=== PATIENT | male | born 1965 | race African-American/Black ===

== ENCOUNTER 2017-02-17 19:17 | Inpatient (IN) ==
[2017-02-17] MEDS ORDERED: SODIUM CHLORIDE 0.9% 2,200 ML IV ONE (20:53)
[2017-02-17 21:36] LABS: Basophils # 0.1 10*3/uL (0.0-0.2); Basophils % 0.3 % (0.0-0.8); Eosinophils # 0.1 10*3/uL (0.0-0.87); Eosinophils % 0.4 % (0.00-10.9); Hematocrit 38.6 VOL% (42.0-52.0); Hemoglobin 12.7 GM/DL (14.0-18.0); Immature Granulocytes % 1.8 %; Immature Granulocytes Absolute 0.47 #; Lymphocytes # 2.1 10*3/uL (1.4-4.0); Lymphocytes % 7.8 % (21.2-54.2); Mean Corpuscular HGB Conc 32.9 GM/DL (32-36); Mean Corpuscular Hemoglobin 31 PG (27-34); Mean Corpuscular Volume 93.2 FL (87-102); Mean Platelet Volume 8.8 FL (9.6-12.0); Monocytes # 2.5 10*3/uL (0.11-0.8); Monocytes % 9.2 % (1.7-12.7); Neutrophils # 21.6 10*3/uL (1.4-7.4); Neutrophils % 80.5 % (38.7-73.9); Platelet Count 185 T/CUMM (130-400); Red Blood Count 4.14 MC/CUMM (3.8-5.5); Red Cell Distribution Width 12.9 % (9.3-17.3); White Blood Count 26.8 T/CUMM (4-12)
[2017-02-17 21:44] LABS: Apearance,Urine CLOUDY (Clear); Bilirubin,Urine Negative (Negative); Blood, Urine Large mg/dL (Negative); Glucose,Urine (UA) Negative (Negative); Ketones,Urine Negative (Negative); Nitrite,Urine Negative (Negative); Protein,Urine 100 MG/DL; RBC,Urine 10 /HPF (0-4); Squamous Epithelial Cell,Urine Occasional /HPF (0-10); Urine Color Yellow (Yellow); Urine Specific Gravity 1.003 (1.001-1.035); Urine Urobilinogen < 2.0 EU/DL (0.2-1.0); WBC,Urine 244 /HPF (0-6)
[2017-02-17] MEDS ORDERED: CEFEPIME 2,000 MG in SODIUM CHLORIDE 0.9% 100 ML IV STA (21:46)
[2017-02-17] MEDS ORDERED: VANCOMYCIN INJ 1,000 MG in SODIUM CHLORIDE 0.9% 250 ML IV STA (21:47)
[2017-02-17] MEDS ORDERED: VANCOMYCIN 1,000 MG VIAL ONE (21:50)
[2017-02-17 21:55] LABS: Band Neutrophils 1 % (0-10); Lymphocytes 10 % (20-55); Segmented Neutrophils 80 % (50-85); Total Cells Counted 100
[2017-02-17 21:56] LABS: Burr Cells Few; Hypochromasia Slight; Platelet Estimate Adequate
[2017-02-17 23:03] LABS: Albumin 2.9 G/DL (3.4-5.0); Bilirubin,Total 0.5 MG/DL (0.2-1.0); Calcium 8.7 MG/DL (8.5-10.1); Osmolality,Calculated 268.8 MOS/KG (273-304); Total Protein 6.6 G/DL (6.4-8.3)
[2017-02-17] MEDS ORDERED: ONDANSETRON 4 MG/2 ML VIAL IV PRN (23:04)
[2017-02-17] MEDS ORDERED: SODIUM CHLORIDE 0.9% 1,000 ML IV SCH (23:30)
[2017-02-18] MEDS: DEXTROSE 5% NACL 0.45% 1,000 ML IV SCH ×2 (01:14→10:28)
[2017-02-18] MEDS: PIPERACILLIN/TAZOBACTAM 3,375 MG in SODIUM CHLORIDE 0.9% 100 ML IV SCH ×3 (01:28→15:27)
[2017-02-18] MEDS: BENZTROPINE 1 MG TABLET PO SCH ×4 (01:31→20:48)
[2017-02-18] MEDS: FAMOTIDINE 20 MG TABLET PO SCH ×3 (01:32→20:49)
[2017-02-18] MEDS: DIVALPROEX 500 MG TABLET PO SCH ×3 (01:32→20:48)
[2017-02-18] MEDS: DOCUSATE SODIUM 100 MG CAPSULE PO SCH ×3 (01:33→20:49)
[2017-02-18 05:44] LABS: Basophils % 0.2 % (0.0-0.8); Eosinophils # 0.1 10*3/uL (0.0-0.87); Eosinophils % 0.7 % (0.00-10.9); Hematocrit 33.9 VOL% (42.0-52.0); Immature Granulocytes % 1.6 %; Immature Granulocytes Absolute 0.32 #; Lymphocytes # 1.8 10*3/uL (1.4-4.0); Lymphocytes % 9.2 % (21.2-54.2); Mean Corpuscular HGB Conc 32.4 GM/DL (32-36); Mean Corpuscular Hemoglobin 30 PG (27-34); Mean Corpuscular Volume 93.4 FL (87-102); Mean Platelet Volume 8.9 FL (9.6-12.0); Monocytes # 1.5 10*3/uL (0.11-0.8); Monocytes % 7.4 % (1.7-12.7); Neutrophils # 15.8 10*3/uL (1.4-7.4); Neutrophils % 80.9 % (38.7-73.9); Platelet Count 172 T/CUMM (130-400); Red Blood Count 3.63 MC/CUMM (3.8-5.5); Red Cell Distribution Width 13.2 % (9.3-17.3); White Blood Count 19.5 T/CUMM (4-12)
[2017-02-18 06:19] LABS: Albumin 2.4 G/DL (3.4-5.0); Bilirubin,Total 0.5 MG/DL (0.2-1.0); Calcium 8.2 MG/DL (8.5-10.1); Osmolality,Calculated 278.1 MOS/KG (273-304); Potassium 3.9 MMOL/L (3.5-5.1); Total Protein 5.6 G/DL (6.4-8.3)
[2017-02-18] MEDS: FERROUS SULFATE 325 MG TABLET PO SCH (08:16)
[2017-02-18] MEDS: hydroCHLOROthiazide 25 MG TABLET PO SCH (08:16)
[2017-02-18] MEDS: LUBIPROSTONE 24 MCG CAPSULE PO SCH ×2 (08:16→20:49)
[2017-02-18] MEDS: NICOTINE 21 MG/24 HR PATCH TRANSDERM SCH (08:17)
[2017-02-18] MEDS: PANTOPRAZOLE 40 MG TABLET PO SCH ×2 (08:17→20:48)
[2017-02-18] MEDS: LITHIUM 300 MG CAPSULE PO SCH ×3 (08:17→20:49)
[2017-02-18] MEDS: METOPROLOL SUCCINATE XL 50 MG TABLET PO SCH (08:17)
[2017-02-18] MEDS ORDERED: HALOPERIDOL 5 MG/ML AMP IV PRN (16:56)
[2017-02-18] MEDS: LURASIDONE 40 MG TABLET PO SCH (17:08)
[2017-02-18] MEDS: TAMSULOSIN 0.4 MG CAPSULE PO SCH (20:49)
[2017-02-19] MEDS: PIPERACILLIN/TAZOBACTAM 3,375 MG in SODIUM CHLORIDE 0.9% 100 ML IV SCH ×4 (00:31→23:40)
[2017-02-19] MEDS: DEXTROSE 5% NACL 0.45% 1,000 ML IV SCH ×3 (06:16→16:27)
[2017-02-19 06:18] LABS: White Blood Count 15.5 T/CUMM (4-12)
[2017-02-19 06:19] LABS: Basophils # 0.1 10*3/uL (0.0-0.2); Basophils % 0.3 % (0.0-0.8); Eosinophils # 0.2 10*3/uL (0.0-0.87); Eosinophils % 1.4 % (0.00-10.9); Hemoglobin 11.4 GM/DL (14.0-18.0); Immature Granulocytes % 1.7 %; Immature Granulocytes Absolute 0.26 #; Lymphocytes # 2.3 10*3/uL (1.4-4.0); Lymphocytes % 14.7 % (21.2-54.2); Mean Corpuscular HGB Conc 32.6 GM/DL (32-36); Mean Corpuscular Hemoglobin 30 PG (27-34); Mean Corpuscular Volume 93.1 FL (87-102); Monocytes # 0.9 10*3/uL (0.11-0.8); Monocytes % 6.1 % (1.7-12.7); Neutrophils # 11.7 10*3/uL (1.4-7.4); Neutrophils % 75.8 % (38.7-73.9); Platelet Count 162 T/CUMM (130-400); Red Blood Count 3.76 MC/CUMM (3.8-5.5); Red Cell Distribution Width 13.4 % (9.3-17.3)
[2017-02-19 07:02] LABS: Calcium 8.7 MG/DL (8.5-10.1); Magnesium 2.7 MG/DL (1.8-2.4); Osmolality,Calculated 281.8 MOS/KG (273-304); Potassium 3.7 MMOL/L (3.5-5.1)
[2017-02-19] MEDS: hydroCHLOROthiazide 25 MG TABLET PO SCH (08:27)
[2017-02-19] MEDS: NICOTINE 21 MG/24 HR PATCH TRANSDERM SCH (08:27)
[2017-02-19] MEDS: FAMOTIDINE 20 MG TABLET PO SCH ×2 (08:28→21:13)
[2017-02-19] MEDS: BENZTROPINE 1 MG TABLET PO SCH ×2 (08:28→21:13)
[2017-02-19] MEDS: FERROUS SULFATE 325 MG TABLET PO SCH (08:28)
[2017-02-19] MEDS: DIVALPROEX 500 MG TABLET PO SCH ×2 (08:28→21:13)
[2017-02-19] MEDS: METOPROLOL SUCCINATE XL 50 MG TABLET PO SCH (08:28)
[2017-02-19] MEDS: PANTOPRAZOLE 40 MG TABLET PO SCH ×2 (08:28→21:13)
[2017-02-19] MEDS: DOCUSATE SODIUM 100 MG CAPSULE PO SCH ×2 (08:28→21:13)
[2017-02-19] MEDS: LUBIPROSTONE 24 MCG CAPSULE PO SCH ×2 (08:28→21:13)
[2017-02-19] MEDS: LITHIUM 300 MG CAPSULE PO SCH ×3 (08:28→21:13)
[2017-02-19] MEDS: LURASIDONE 40 MG TABLET PO SCH (17:00)
[2017-02-19] MEDS: TAMSULOSIN 0.4 MG CAPSULE PO SCH (21:13)
[2017-02-20] MEDS: DEXTROSE 5% NACL 0.45% 1,000 ML IV SCH ×2 (04:48→13:37)
[2017-02-20 07:05] LABS: Basophils # 0.1 10*3/uL (0.0-0.2); Basophils % 0.4 % (0.0-0.8); Eosinophils # 0.3 10*3/uL (0.0-0.87); Eosinophils % 2.3 % (0.00-10.9); Hematocrit 39.1 VOL% (42.0-52.0); Hemoglobin 12.3 GM/DL (14.0-18.0); Immature Granulocytes % 1.6 %; Immature Granulocytes Absolute 0.19 #; Lymphocytes # 2.3 10*3/uL (1.4-4.0); Lymphocytes % 19.2 % (21.2-54.2); Mean Corpuscular HGB Conc 31.5 GM/DL (32-36); Mean Corpuscular Hemoglobin 30 PG (27-34); Mean Corpuscular Volume 93.8 FL (87-102); Mean Platelet Volume 9.3 FL (9.6-12.0); Monocytes # 1.2 10*3/uL (0.11-0.8); Monocytes % 9.9 % (1.7-12.7); NRBC # 0.02 10*3/uL; Neutrophils # 8.1 10*3/uL (1.4-7.4); Neutrophils % 66.6 % (38.7-73.9); Platelet Count 141 T/CUMM (130-400); Red Blood Count 4.17 MC/CUMM (3.8-5.5); Red Cell Distribution Width 13.1 % (9.3-17.3); White Blood Count 12.1 T/CUMM (4-12)
[2017-02-20] MEDS: FAMOTIDINE 20 MG TABLET PO SCH (09:27)
[2017-02-20] MEDS: hydroCHLOROthiazide 25 MG TABLET PO SCH (09:27)
[2017-02-20] MEDS: LUBIPROSTONE 24 MCG CAPSULE PO SCH (09:27)
[2017-02-20] MEDS: DOCUSATE SODIUM 100 MG CAPSULE PO SCH (09:28)
[2017-02-20] MEDS: FERROUS SULFATE 325 MG TABLET PO SCH (09:28)
[2017-02-20] MEDS: PANTOPRAZOLE 40 MG TABLET PO SCH (09:28)
[2017-02-20] MEDS: LITHIUM 300 MG CAPSULE PO SCH (09:28)
[2017-02-20] MEDS: BENZTROPINE 1 MG TABLET PO SCH (09:28)
[2017-02-20] MEDS: PIPERACILLIN/TAZOBACTAM 3,375 MG in SODIUM CHLORIDE 0.9% 100 ML IV SCH (09:29)
[2017-02-20] MEDS: DIVALPROEX 500 MG TABLET PO SCH (09:29)
[2017-02-20] MEDS: NICOTINE 21 MG/24 HR PATCH TRANSDERM SCH (09:30)
[2017-02-20] MEDS: METOPROLOL SUCCINATE XL 50 MG TABLET PO SCH (09:32)
[2017-02-20 12:35] VITALS: BP 122/89
== END 2017-02-20 15:18 | disposition home or self-care (01) | DRG 720 ==
LOC: N.ED 19:17 → N.EDINP 23:04 → N.5E 23:34
PROVIDERS: ADMIT Internal Medicine; ATTEND Internal Medicine

== ENCOUNTER 2017-06-14 08:46 | Inpatient (IN) ==
[2017-06-14 09:56] LABS: Basophils % 0.1 % (0.0-0.8); Eosinophils % 0.3 % (0.00-10.9); Hematocrit 34.6 VOL% (42.0-52.0); Hemoglobin 11.4 GM/DL (14.0-18.0); Immature Granulocytes % 0.4 %; Immature Granulocytes Absolute 0.03 #; Lymphocytes # 0.9 10*3/uL (1.4-4.0); Lymphocytes % 10.8 % (21.2-54.2); Mean Corpuscular HGB Conc 32.9 GM/DL (32-36); Mean Corpuscular Hemoglobin 28 PG (27-34); Mean Platelet Volume 9.7 FL (9.6-12.0); Monocytes # 1.7 10*3/uL (0.11-0.8); Neutrophils # 5.3 10*3/uL (1.4-7.4); Neutrophils % 67.4 % (38.7-73.9); Red Blood Count 4.07 MC/CUMM (3.8-5.5); Red Cell Distribution Width 18.8 % (9.3-17.3); White Blood Count 7.9 T/CUMM (4-12)
[2017-06-14 09:57] LABS: Platelet Count 75 T/CUMM (130-400)
[2017-06-14 10:11] LABS: Albumin 3.3 G/DL (3.4-5.0); Bilirubin,Total 0.4 MG/DL (0.2-1.0); Calcium 9.8 MG/DL (8.5-10.1); Osmolality,Calculated 279.4 MOS/KG (273-304); Total Protein 6.9 G/DL (6.4-8.3)
[2017-06-14 10:13] LABS: Lactic Acid 1.1 MMOL/L (0.4-2.0)
[2017-06-14 10:55] LABS: Band Neutrophils 5 % (0-10); Hypochromasia 1+; Lymphocytes 18 % (20-55); Metamyelocytes 1 %; Microcytosis 1+; Nucleated Red Blood Cells 1 (0-5); Ovalocytes Slight; Segmented Neutrophils 65 % (50-85); Total Cells Counted 100
[2017-06-14 10:56] LABS: Acanthocytes Few; Platelet Estimate Decreased; Tear Drop Cells Slight
[2017-06-14] MEDS ORDERED: MORPHINE 2 MG/1 ML SYRINGE IV PRN (12:14)
[2017-06-14] MEDS ORDERED: ONDANSETRON 4 MG/2 ML VIAL IV PRN (14:32)
[2017-06-14] MEDS ORDERED: DOCUSATE SODIUM 100 MG CAPSULE PO PRN (14:32)
[2017-06-14] MEDS ORDERED: LACTULOSE 20 GM/30 ML UDCUP PO PRN (14:32)
[2017-06-14 21:56] LABS: Apearance,Urine CLEAR (Clear); Bacteria,Urine Occasional /HPF (Few); Bilirubin,Urine Negative (Negative); Blood, Urine Large mg/dL (Negative); Glucose,Urine (UA) Negative (Negative); Hyaline Casts,Urine 9 /LPF (0-3); Ketones,Urine Negative (Negative); Mucus,Urine Occasional /LPF (Occasional); Nitrite,Urine Negative (Negative); Protein,Urine 100 MG/DL; RBC,Urine 292 /HPF (0-4); Urine Color Yellow (Yellow); Urine Specific Gravity 1.006 (1.001-1.035); Urine Urobilinogen < 2.0 EU/DL (0.2-1.0); WBC,Urine 3 /HPF (0-6)
[2017-06-15 04:08] LABS: Basophils % 0.4 % (0.0-0.8); Hematocrit 32.1 VOL% (42.0-52.0); Hemoglobin 10.6 GM/DL (14.0-18.0); Immature Granulocytes % 0.8 %; Immature Granulocytes Absolute 0.04 #; Lymphocytes # 0.5 10*3/uL (1.4-4.0); Lymphocytes % 11.4 % (21.2-54.2); Mean Corpuscular Hemoglobin 28 PG (27-34); Mean Corpuscular Volume 84.5 FL (87-102); Mean Platelet Volume 10.6 FL (9.6-12.0); Monocytes # 0.5 10*3/uL (0.11-0.8); Monocytes % 10.1 % (1.7-12.7); Neutrophils # 3.7 10*3/uL (1.4-7.4); Neutrophils % 77.3 % (38.7-73.9); Platelet Count 53 T/CUMM (130-400); Red Cell Distribution Width 18.8 % (9.3-17.3); White Blood Count 4.7 T/CUMM (4-12)
[2017-06-15 04:31] LABS: Calcium 8.8 MG/DL (8.5-10.1); Osmolality,Calculated 280.3 MOS/KG (273-304); Potassium 3.8 MMOL/L (3.5-5.1)
[2017-06-15 05:28] LABS: Band Neutrophils 25 % (0-10); Eosinophils 1 % (0-10); Giant Platelets Few; Hypochromasia 1+; Lymphocytes 11 % (20-55); Myelocytes 4 %; Ovalocytes Slight; Platelet Estimate Decreased; Segmented Neutrophils 52 % (50-85); Total Cells Counted 100
[2017-06-15 05:29] LABS: Microcytosis Slight
[2017-06-15] MEDS: PANTOPRAZOLE 40 MG TABLET PO SCH (08:57)
[2017-06-16 04:19] LABS: Basophils # 0.1 10*3/uL (0.0-0.2); Basophils % 0.6 % (0.0-0.8); Eosinophils # 0.1 10*3/uL (0.0-0.87); Eosinophils % 0.6 % (0.00-10.9); Hematocrit 31.2 VOL% (42.0-52.0); Hemoglobin 10.4 GM/DL (14.0-18.0); Immature Granulocytes % 7.6 %; Immature Granulocytes Absolute 1.07 #; Lymphocytes # 0.8 10*3/uL (1.4-4.0); Lymphocytes % 5.8 % (21.2-54.2); Mean Corpuscular HGB Conc 33.3 GM/DL (32-36); Mean Corpuscular Hemoglobin 29 PG (27-34); Mean Corpuscular Volume 85.5 FL (87-102); Mean Platelet Volume 11.2 FL (9.6-12.0); Monocytes # 0.8 10*3/uL (0.11-0.8); Neutrophils # 11.2 10*3/uL (1.4-7.4); Neutrophils % 79.4 % (38.7-73.9); Platelet Count 53 T/CUMM (130-400); Red Blood Count 3.65 MC/CUMM (3.8-5.5); Red Cell Distribution Width 19.1 % (9.3-17.3); White Blood Count 14.1 T/CUMM (4-12)
[2017-06-16 04:47] LABS: Calcium 9.2 MG/DL (8.5-10.1); Osmolality,Calculated 290.7 MOS/KG (273-304); Potassium 3.4 MMOL/L (3.5-5.1)
[2017-06-16 05:25] LABS: Band Neutrophils 32 % (0-10); Burr Cells 1+; Eosinophils 1 % (0-10); Lymphocytes 28 % (20-55); Metamyelocytes 3 %; Myelocytes 4 %; Platelet Estimate Decreased; Poikilocytosis Few; Segmented Neutrophils 29 % (50-85); Total Cells Counted 100
[2017-06-16] MEDS: amLODIPine 5 MG TABLET PO SCH (08:32)
[2017-06-16] MEDS ORDERED: METOPROLOL SUCCINATE XL 50 MG TABLET PO SCH (09:00)
[2017-06-16] MEDS: CLOTRIMAZOLE 1% CREAM 15 GM TUBE TOP SCH ×2 (10:56→21:06)
[2017-06-16] MEDS: BENZTROPINE 1 MG TABLET PO SCH ×3 (10:57→21:06)
[2017-06-16] MEDS: CLINDAMYCIN 300 MG CAPSULE PO SCH ×4 (10:57→21:05)
[2017-06-16] MEDS: DIVALPROEX 500 MG TABLET PO SCH ×2 (10:57→21:06)
[2017-06-16] MEDS: PANTOPRAZOLE 40 MG TABLET PO SCH ×2 (10:57→11:17)
[2017-06-16] MEDS: TERBINAFINE 250 MG TABLET PO SCH ×2 (10:57→11:16)
[2017-06-16] MEDS: HALOPERIDOL 5 MG TABLET PO SCH ×3 (10:57→21:06)
[2017-06-16] MEDS: LITHIUM 300 MG CAPSULE PO SCH ×3 (10:58→21:06)
[2017-06-17] MEDS: amLODIPine 5 MG TABLET PO SCH (08:55)
[2017-06-17] MEDS: BENZTROPINE 1 MG TABLET PO SCH ×2 (10:08→21:14)
[2017-06-17] MEDS: DIVALPROEX 500 MG TABLET PO SCH ×2 (10:08→21:14)
[2017-06-17] MEDS: CLINDAMYCIN 300 MG CAPSULE PO SCH ×3 (10:08→21:15)
[2017-06-17] MEDS: HALOPERIDOL 5 MG TABLET PO SCH ×2 (10:08→21:14)
[2017-06-17] MEDS: CLOTRIMAZOLE 1% CREAM 15 GM TUBE TOP SCH ×2 (10:08→21:16)
[2017-06-17] MEDS: PANTOPRAZOLE 40 MG TABLET PO SCH (10:09)
[2017-06-17] MEDS: LITHIUM 300 MG CAPSULE PO SCH ×3 (10:09→21:15)
[2017-06-17] MEDS: TERBINAFINE 250 MG TABLET PO SCH (10:09)
[2017-06-17] MEDS ORDERED: TUBERCULIN SKIN TEST 0.1 ML SYRINGE INTRADERM ONE (12:00)
[2017-06-18] MEDS: CLOTRIMAZOLE 1% CREAM 15 GM TUBE TOP SCH ×2 (09:00→23:55)
[2017-06-18] MEDS: CLINDAMYCIN 300 MG CAPSULE PO SCH ×3 (10:14→23:53)
[2017-06-18] MEDS: DIVALPROEX 500 MG TABLET PO SCH ×2 (10:15→23:54)
[2017-06-18] MEDS: BENZTROPINE 1 MG TABLET PO SCH ×2 (10:15→23:53)
[2017-06-18] MEDS: LITHIUM 300 MG CAPSULE PO SCH ×3 (10:15→23:54)
[2017-06-18] MEDS: HALOPERIDOL 5 MG TABLET PO SCH ×2 (10:15→23:54)
[2017-06-18] MEDS: PANTOPRAZOLE 40 MG TABLET PO SCH (10:16)
[2017-06-18] MEDS: amLODIPine 5 MG TABLET PO SCH (10:17)
[2017-06-18] MEDS: TERBINAFINE 250 MG TABLET PO SCH (10:21)
[2017-06-19] MEDS: LITHIUM 300 MG CAPSULE PO SCH ×3 (10:29→21:52)
[2017-06-19] MEDS: TERBINAFINE 250 MG TABLET PO SCH (10:29)
[2017-06-19] MEDS: HALOPERIDOL 5 MG TABLET PO SCH ×2 (10:29→21:52)
[2017-06-19] MEDS: PANTOPRAZOLE 40 MG TABLET PO SCH (10:29)
[2017-06-19] MEDS: DIVALPROEX 500 MG TABLET PO SCH ×2 (10:30→21:52)
[2017-06-19] MEDS: BENZTROPINE 1 MG TABLET PO SCH ×2 (10:30→21:52)
[2017-06-19] MEDS: amLODIPine 5 MG TABLET PO SCH (10:30)
[2017-06-19] MEDS: CLINDAMYCIN 300 MG CAPSULE PO SCH ×3 (10:30→21:51)
[2017-06-19] MEDS: CLOTRIMAZOLE 1% CREAM 15 GM TUBE TOP SCH ×2 (17:53→23:35)
[2017-06-20] MEDS: DIVALPROEX 500 MG TABLET PO SCH (09:24)
[2017-06-20] MEDS: CLINDAMYCIN 300 MG CAPSULE PO SCH ×2 (09:24→19:00)
[2017-06-20] MEDS: TERBINAFINE 250 MG TABLET PO SCH (09:24)
[2017-06-20] MEDS: HALOPERIDOL 5 MG TABLET PO SCH ×2 (09:25→21:23)
[2017-06-20] MEDS: PANTOPRAZOLE 40 MG TABLET PO SCH (09:25)
[2017-06-20] MEDS: amLODIPine 5 MG TABLET PO SCH (09:25)
[2017-06-20] MEDS: BENZTROPINE 1 MG TABLET PO SCH ×2 (09:25→21:23)
[2017-06-20] MEDS: LITHIUM 300 MG CAPSULE PO SCH ×3 (09:25→21:22)
[2017-06-20 18:13] LABS: Basophils % 0.5 % (0.0-0.8); Eosinophils # 0.1 10*3/uL (0.0-0.87); Eosinophils % 0.7 % (0.00-10.9); Hematocrit 45.2 VOL% (42.0-52.0); Hemoglobin 14.3 GM/DL (14.0-18.0); Immature Granulocytes % 0.6 %; Immature Granulocytes Absolute 0.05 #; Mean Corpuscular HGB Conc 31.6 GM/DL (32-36); Mean Corpuscular Hemoglobin 28 PG (27-34); Mean Corpuscular Volume 87.8 FL (87-102); Monocytes # 0.9 10*3/uL (0.11-0.8); Monocytes % 10.7 % (1.7-12.7); NRBC # 0.04 10*3/uL; Neutrophils # 5.1 10*3/uL (1.4-7.4); Neutrophils % 63.5 % (38.7-73.9); Red Blood Count 5.15 MC/CUMM (3.8-5.5); Red Cell Distribution Width 21.7 % (9.3-17.3); White Blood Count 8.1 T/CUMM (4-12)
[2017-06-20 18:26] LABS: Platelet Count 38 T/CUMM (130-400)
[2017-06-20 18:41] LABS: Albumin 2.7 G/DL (3.4-5.0); Bilirubin,Total 0.4 MG/DL (0.2-1.0); Calcium 9.9 MG/DL (8.5-10.1); Osmolality,Calculated 343.3 MOS/KG (273-304); Potassium 3.8 MMOL/L (3.5-5.1); Total Protein 6.7 G/DL (6.4-8.3)
[2017-06-20] MEDS: CLOTRIMAZOLE 1% CREAM 15 GM TUBE TOP SCH ×2 (18:44→21:23)
[2017-06-20] MEDS ORDERED: SODIUM CHLORIDE 0.9% 1,000 ML IV PRN (18:48)
[2017-06-20] MEDS ORDERED: DEXTROSE 5% 1,000 ML IV SCH (19:00)
[2017-06-20 19:31] LABS: Lymphocytes 19 % (20-55); Myelocytes 1 %; Platelet Estimate Decreased; Polychromasia Few; Segmented Neutrophils 76 % (50-85); Total Cells Counted 100
[2017-06-20] MEDS ORDERED: CLINDAMYCIN INJ 300 MG in PREMIX 1 EACH IV SCH (20:00)
[2017-06-20] MEDS: DEXTROSE 5% 1,000 ML IV SCH (20:48)
[2017-06-20] MEDS: VALPROIC ACID INJ 1,000 MG in SODIUM CHLORIDE 0.9% 100 ML IV SCH (21:58)
[2017-06-20] MEDS ORDERED: NALOXONE 0.4 MG/ML VIAL ONE (23:23)
[2017-06-20] MEDS ORDERED: NALOXONE 0.4 MG/ML VIAL IV ONE (23:24)
[2017-06-20] MEDS ORDERED: ALBUTEROL/IPRATROPIUM 3 ML NEB RESP TX PRN (23:57)
[2017-06-21 00:11] LABS: ABG Base Excess 5.4 MMOL/L (-2.5-2.5); ABG HCO3 31.2 MMOL/L (20-26); ABG Oxygen Saturation 90.7 % (95-100); ABG PCO2 50.6 MM HG (35-48); ABG PH 7.408 (7.35-7.45); ABG PO2 63.7 MM HG (80-95); ABG TCO2 32.8 MMOL/L (23-27); Allen Test Positive
[2017-06-21 00:46] LABS: Lactic Acid 4.3 MMOL/L (0.4-2.0)
[2017-06-21 00:48] LABS: Calcium 9.5 MG/DL (8.5-10.1); Osmolality,Calculated 346.5 MOS/KG (273-304); Potassium 4.1 MMOL/L (3.5-5.1)
[2017-06-21 00:58] LABS: Basophils # 0.1 10*3/uL (0.0-0.2); Eosinophils % 0.5 % (0.00-10.9); Hematocrit 51.8 VOL% (42.0-52.0); Hemoglobin 16.4 GM/DL (14.0-18.0); Immature Granulocytes % 0.5 %; Immature Granulocytes Absolute 0.04 #; Lymphocytes # 1.5 10*3/uL (1.4-4.0); Lymphocytes % 19.5 % (21.2-54.2); Mean Corpuscular HGB Conc 31.7 GM/DL (32-36); Mean Corpuscular Hemoglobin 28 PG (27-34); Mean Corpuscular Volume 88.9 FL (87-102); Monocytes # 1.2 10*3/uL (0.11-0.8); Monocytes % 15.3 % (1.7-12.7); NRBC # 0.18 10*3/uL; Neutrophils # 4.9 10*3/uL (1.4-7.4); Neutrophils % 63.2 % (38.7-73.9); Red Blood Count 5.83 MC/CUMM (3.8-5.5); Red Cell Distribution Width 22.5 % (9.3-17.3); White Blood Count 7.7 T/CUMM (4-12)
[2017-06-21 01:02] LABS: Platelet Count 36 T/CUMM (130-400)
[2017-06-21] MEDS: ALBUTEROL/IPRATROPIUM 3 ML NEB RESP TX SCH ×4 (01:29→19:20)
[2017-06-21] MEDS: PIPERACILLIN/TAZOBACTAM 3,375 MG in SODIUM CHLORIDE 0.9% 100 ML IV SCH ×3 (03:04→18:30)
[2017-06-21 03:26] LABS: Band Neutrophils 9 % (0-10); Lymphocytes 29 % (20-55); Metamyelocytes 1 %; Myelocytes 2 %; Promyelocytes 1 %; Segmented Neutrophils 51 % (50-85)
[2017-06-21 03:30] LABS: Platelet Estimate Decreased; Polychromasia Few; Schistocytes Few; Target Cells Few
[2017-06-21 03:31] LABS: Burr Cells Few; Ovalocytes 1+
[2017-06-21 03:32] LABS: Total Cells Counted 100
[2017-06-21] MEDS ORDERED: ETOMIDATE 20 MG/10 ML VIAL IV ONE ×2 (06:27→06:35)
[2017-06-21] MEDS ORDERED: VECURONIUM 10 MG VIAL IV ONE ×2 (06:27→06:35)
[2017-06-21] MEDS ORDERED: PROPOFOL 1,000 MG/100 ML BOTTLE IV ONE (06:38)
[2017-06-21 07:29] LABS: Allen Test Positive; Pt O2 Delivery Device Ventilator
[2017-06-21 07:31] LABS: ABG Base Excess 2.5 MMOL/L (-2.5-2.5); ABG HCO3 26.7 MMOL/L (20-26); ABG Oxygen Saturation 99.1 % (95-100); ABG PCO2 65.1 MM HG (35-48); ABG PH 7.284 (7.35-7.45); ABG TCO2 28.3 MMOL/L (23-27)
[2017-06-21 07:59] LABS: Basophils # 0.1 10*3/uL (0.0-0.2); Basophils % 1.1 % (0.0-0.8); Eosinophils % 0.1 % (0.00-10.9); Hematocrit 32.3 VOL% (42.0-52.0); Hemoglobin 10.1 GM/DL (14.0-18.0); Immature Granulocytes % 0.9 %; Immature Granulocytes Absolute 0.07 #; Lymphocytes % 11.9 % (21.2-54.2); Mean Corpuscular HGB Conc 31.3 GM/DL (32-36); Mean Corpuscular Hemoglobin 28 PG (27-34); Mean Corpuscular Volume 89.2 FL (87-102); Mean Platelet Volume 9.6 FL (9.6-12.0); Monocytes % 12.1 % (1.7-12.7); Neutrophils # 5.9 10*3/uL (1.4-7.4); Neutrophils % 73.9 % (38.7-73.9); Platelet Count 145 T/CUMM (130-400); Red Blood Count 3.62 MC/CUMM (3.8-5.5); Red Cell Distribution Width 21.2 % (9.3-17.3)
[2017-06-21 08:03] LABS: INR 1.2; PT Patient Result 12.5 SECS
[2017-06-21 08:20] LABS: Giant Platelets Few; Hypochromasia 1+; Platelet Estimate Normal
[2017-06-21 08:21] LABS: Ovalocytes Slight
[2017-06-21 08:25] LABS: Lactic Acid 3.3 MMOL/L (0.4-2.0)
[2017-06-21 08:29] LABS: Osmolality,Calculated 351.5 MOS/KG (273-304); Potassium 3.4 MMOL/L (3.5-5.1)
[2017-06-21] MEDS: LITHIUM 300 MG CAPSULE PO SCH ×2 (08:45→15:49)
[2017-06-21] MEDS: TERBINAFINE 250 MG TABLET PO SCH (08:45)
[2017-06-21] MEDS: HALOPERIDOL 5 MG TABLET PO SCH ×2 (08:45→23:16)
[2017-06-21] MEDS: PANTOPRAZOLE 40 MG TABLET PO SCH (08:45)
[2017-06-21] MEDS: amLODIPine 5 MG TABLET PO SCH (08:45)
[2017-06-21] MEDS: BENZTROPINE 1 MG TABLET PO SCH ×2 (08:45→23:17)
[2017-06-21] MEDS ORDERED: LIDOCAINE 1% 20 ML VIAL MISC INJ ONE (08:49)
[2017-06-21] MEDS ORDERED: LIDOCAINE 2% 20 ML VIAL RESP TX ONE (08:49)
[2017-06-21] MEDS: PROPOFOL 1,000 MG/100 ML BOTTLE IV SCH (10:26)
[2017-06-21] MEDS: DEXTROSE 5% 1,000 ML IV SCH (10:29)
[2017-06-21] MEDS: VALPROIC ACID INJ 1,000 MG in SODIUM CHLORIDE 0.9% 100 ML IV SCH ×2 (11:07→21:42)
[2017-06-21] MEDS: CLOTRIMAZOLE 1% CREAM 15 GM TUBE TOP SCH (11:20)
[2017-06-21 13:20] LABS: Lactic Acid 5.1 MMOL/L (0.4-2.0)
[2017-06-21] MEDS: ceFAZolin 1,000 MG in SYRINGE 1 EACH IV ONE (15:40)
[2017-06-21] MEDS ORDERED: SODIUM CHLORIDE 0.45% 500 ML IV ONE (20:26)
[2017-06-21] MEDS ORDERED: NOREPINEPHRINE 16 MG in SODIUM CHLORIDE 0.9% 234 ML IV SCH (20:30)
[2017-06-21] MEDS: NOREPINEPHRINE 8 MG in SODIUM CHLORIDE 0.9% 242 ML IV SCH (23:17)
[2017-06-22] MEDS: LITHIUM 300 MG CAPSULE PO SCH ×4 (00:41→22:31)
[2017-06-22] MEDS: CLOTRIMAZOLE 1% CREAM 15 GM TUBE TOP SCH ×3 (00:42→21:45)
[2017-06-22] MEDS: ALBUTEROL/IPRATROPIUM 3 ML NEB RESP TX SCH ×4 (00:46→19:36)
[2017-06-22] MEDS: DEXTROSE 5% 1,000 ML IV SCH (02:51)
[2017-06-22 04:07] LABS: ABG Base Excess 5.7 MMOL/L (-2.5-2.5); ABG HCO3 31.3 MMOL/L (20-26); ABG Oxygen Saturation 99.2 % (95-100); ABG PCO2 50.2 MM HG (35-48); ABG PH 7.413 (7.35-7.45); ABG PO2 208.3 MM HG (80-95); ABG TCO2 32.9 MMOL/L (23-27)
[2017-06-22 05:12] LABS: Basophils % 0.1 % (0.0-0.8); Eosinophils # 0.1 10*3/uL (0.0-0.87); Eosinophils % 0.5 % (0.00-10.9); Hematocrit 36.3 VOL% (42.0-52.0); Hemoglobin 11.4 GM/DL (14.0-18.0); Immature Granulocytes % 2.3 %; Immature Granulocytes Absolute 0.42 #; Lymphocytes # 1.8 10*3/uL (1.4-4.0); Lymphocytes % 9.9 % (21.2-54.2); Mean Corpuscular HGB Conc 31.4 GM/DL (32-36); Mean Corpuscular Hemoglobin 28 PG (27-34); Mean Platelet Volume 10.8 FL (9.6-12.0); Monocytes # 0.3 10*3/uL (0.11-0.8); Monocytes % 1.4 % (1.7-12.7); Neutrophils # 15.8 10*3/uL (1.4-7.4); Neutrophils % 85.8 % (38.7-73.9); Platelet Count 85 T/CUMM (130-400); Red Blood Count 4.08 MC/CUMM (3.8-5.5); Red Cell Distribution Width 21.4 % (9.3-17.3); White Blood Count 18.4 T/CUMM (4-12)
[2017-06-22 05:32] LABS: Lactic Acid 2.6 MMOL/L (0.4-2.0)
[2017-06-22] MEDS ORDERED: NOREPINEPHRINE 4 MG/4 ML VIAL IV ONE (05:34)
[2017-06-22 05:45] LABS: Alanine Aminotransferase 26 U/L (16-61); Albumin 2.1 G/DL (3.4-5.0); Alkaline Phosphatase 139 U/L (45-117); Aspartate Amino Transferase 35 U/L (0-37); Band Neutrophils 12 % (0-10); Blood Urea Nitrogen 53 MG/DL (7-18); Calcium 9.2 MG/DL (8.5-10.1); Eosinophils 1 % (0-10); Glucose 71 MG/DL (74-106); Hypochromasia 1+; Lymphocytes 10 % (20-55); Metamyelocytes 9 %; Myelocytes 3 %; Nucleated Red Blood Cells 1 (0-5); Osmolality,Calculated 333.2 MOS/KG (273-304); Potassium 3.1 MMOL/L (3.5-5.1); Segmented Neutrophils 61 % (50-85); Total Cells Counted 100; Total Protein 5.7 G/DL (6.4-8.3)
[2017-06-22 05:46] LABS: Acanthocytes Few; Burr Cells Slight; Microcytosis 1+; Platelet Estimate Decreased; Target Cells Slight
[2017-06-22 05:53] LABS: Sodium 163 MMOL/L (136-145)
[2017-06-22] MEDS: NOREPINEPHRINE 8 MG in SODIUM CHLORIDE 0.9% 242 ML IV SCH (06:00)
[2017-06-22] MEDS: PIPERACILLIN/TAZOBACTAM 3,375 MG in SODIUM CHLORIDE 0.9% 100 ML IV SCH ×4 (06:06→22:32)
[2017-06-22] MEDS: VALPROIC ACID INJ 1,000 MG in SODIUM CHLORIDE 0.9% 100 ML IV SCH ×2 (08:59→21:43)
[2017-06-22] MEDS: PANTOPRAZOLE 40 MG TABLET PO SCH (08:59)
[2017-06-22] MEDS: TERBINAFINE 250 MG TABLET PO SCH (08:59)
[2017-06-22] MEDS: HALOPERIDOL 5 MG TABLET PO SCH ×2 (09:00→22:31)
[2017-06-22] MEDS: BENZTROPINE 1 MG TABLET PO SCH ×2 (09:00→21:43)
[2017-06-22] MEDS: PROPOFOL 1,000 MG/100 ML BOTTLE IV SCH (09:00)
[2017-06-22] MEDS: amLODIPine 5 MG TABLET PO SCH (09:00)
[2017-06-22] MEDS ORDERED: LACTATED RINGERS 500 ML IV ONE (09:22)
[2017-06-22] MEDS: POTASSIUM CHLORIDE RIDER 10 MEQ in PREMIX 1 EACH IV SCH ×4 (11:16→15:00)
[2017-06-23] MEDS: ALBUTEROL/IPRATROPIUM 3 ML NEB RESP TX SCH ×4 (00:22→19:59)
[2017-06-23] MEDS: DEXTROSE 5% 1,000 ML IV SCH ×2 (01:31→22:12)
[2017-06-23] MEDS: NOREPINEPHRINE 8 MG in SODIUM CHLORIDE 0.9% 242 ML IV SCH ×3 (01:34→22:26)
[2017-06-23 03:37] LABS: ABG Base Excess 5.9 MMOL/L (-2.5-2.5); ABG HCO3 30.6 MMOL/L (20-26); ABG Oxygen Saturation 98.7 % (95-100); ABG PCO2 45.1 MM HG (35-48); ABG PH 7.449 (7.35-7.45); ABG PO2 182.8 MM HG (80-95); Allen Test Positive; Pt O2 Delivery Device Ventilator
[2017-06-23] MEDS: PIPERACILLIN/TAZOBACTAM 3,375 MG in SODIUM CHLORIDE 0.9% 100 ML IV SCH (05:30)
[2017-06-23 05:47] LABS: Basophils % 0.1 % (0.0-0.8); Eosinophils % 0.2 % (0.00-10.9); Hematocrit 34.7 VOL% (42.0-52.0); Hemoglobin 11.5 GM/DL (14.0-18.0); Immature Granulocytes % 4.7 %; Immature Granulocytes Absolute 0.92 #; Lymphocytes # 1.1 10*3/uL (1.4-4.0); Lymphocytes % 5.4 % (21.2-54.2); Mean Corpuscular HGB Conc 33.1 GM/DL (32-36); Mean Corpuscular Hemoglobin 29 PG (27-34); Mean Corpuscular Volume 85.9 FL (87-102); Monocytes # 0.3 10*3/uL (0.11-0.8); Monocytes % 1.3 % (1.7-12.7); NRBC # 0.07 10*3/uL; Neutrophils # 17.3 10*3/uL (1.4-7.4); Neutrophils % 88.3 % (38.7-73.9); Red Blood Count 4.04 MC/CUMM (3.8-5.5); Red Cell Distribution Width 21.8 % (9.3-17.3); White Blood Count 19.6 T/CUMM (4-12)
[2017-06-23 06:12] LABS: Platelet Count 31 T/CUMM (130-400)
[2017-06-23 06:37] LABS: Band Neutrophils 12 % (0-10); Lymphocytes 8 % (20-55); Metamyelocytes 3 %; Myelocytes 3 %; Segmented Neutrophils 69 % (50-85); Total Cells Counted 100
[2017-06-23 06:38] LABS: Acanthocytes Few; Burr Cells Few; Hypochromasia 1+; Microcytosis 1+; Target Cells Slight
[2017-06-23 06:39] LABS: Platelet Estimate Decreased
[2017-06-23 06:40] LABS: Calcium 8.9 MG/DL (8.5-10.1); Osmolality,Calculated 318.3 MOS/KG (273-304); Potassium 3.6 MMOL/L (3.5-5.1)
[2017-06-23] MEDS: PROPOFOL 1,000 MG/100 ML BOTTLE IV SCH (09:27)
[2017-06-23] MEDS: PANTOPRAZOLE 40 MG TABLET PO SCH (09:28)
[2017-06-23] MEDS: TERBINAFINE 250 MG TABLET PO SCH (09:28)
[2017-06-23] MEDS: BENZTROPINE 1 MG TABLET PO SCH ×2 (09:28→22:09)
[2017-06-23] MEDS: HALOPERIDOL 5 MG TABLET PO SCH ×2 (09:29→22:09)
[2017-06-23] MEDS: LITHIUM 300 MG CAPSULE PO SCH ×3 (09:30→22:09)
[2017-06-23] MEDS: amLODIPine 5 MG TABLET PO SCH (09:30)
[2017-06-23] MEDS: CLOTRIMAZOLE 1% CREAM 15 GM TUBE TOP SCH ×2 (09:30→22:09)
[2017-06-23] MEDS: VALPROIC ACID INJ 1,000 MG in SODIUM CHLORIDE 0.9% 100 ML IV SCH (11:48)
[2017-06-23] MEDS: MEROPENEM 500 MG in SYRINGE 1 EACH IV SCH ×2 (15:56→22:10)
[2017-06-24] MEDS: ALBUTEROL/IPRATROPIUM 3 ML NEB RESP TX SCH ×4 (01:54→20:03)
[2017-06-24 04:39] LABS: Allen Test Positive; Pt O2 Delivery Device Ventilator
[2017-06-24 04:40] LABS: ABG Base Excess 7.7 MMOL/L (-2.5-2.5); ABG HCO3 31.4 MMOL/L (20-26); ABG Oxygen Saturation 93.7 % (95-100); ABG PCO2 41.6 MM HG (35-48); ABG PH 7.491 (7.35-7.45); ABG PO2 64.8 MM HG (80-95); ABG TCO2 28.8 MMOL/L (23-27)
[2017-06-24 05:18] LABS: Basophils % 0.1 % (0.0-0.8); Eosinophils # 0.1 10*3/uL (0.0-0.87); Eosinophils % 0.7 % (0.00-10.9); Hematocrit 30.3 VOL% (42.0-52.0); Hemoglobin 9.9 GM/DL (14.0-18.0); Immature Granulocytes % 0.4 %; Immature Granulocytes Absolute 0.05 #; Lymphocytes # 0.5 10*3/uL (1.4-4.0); Lymphocytes % 4.7 % (21.2-54.2); Mean Corpuscular HGB Conc 32.7 GM/DL (32-36); Mean Corpuscular Hemoglobin 28 PG (27-34); Mean Corpuscular Volume 85.8 FL (87-102); Monocytes # 0.2 10*3/uL (0.11-0.8); Monocytes % 1.6 % (1.7-12.7); NRBC # 0.12 10*3/uL; Neutrophils # 10.5 10*3/uL (1.4-7.4); Neutrophils % 92.5 % (38.7-73.9); Red Blood Count 3.53 MC/CUMM (3.8-5.5); Red Cell Distribution Width 21.7 % (9.3-17.3); White Blood Count 11.4 T/CUMM (4-12)
[2017-06-24 05:21] LABS: Platelet Count 19 T/CUMM (130-400)
[2017-06-24 05:44] LABS: Albumin 1.6 G/DL (3.4-5.0); Bilirubin,Total 0.9 MG/DL (0.2-1.0); Calcium 9.3 MG/DL (8.5-10.1); Osmolality,Calculated 324.7 MOS/KG (273-304); Potassium 3.1 MMOL/L (3.5-5.1); Total Protein 4.9 G/DL (6.4-8.3)
[2017-06-24 06:09] LABS: Band Neutrophils 4 % (0-10); Eosinophils 1 % (0-10); Lymphocytes 5 % (20-55); Segmented Neutrophils 86 % (50-85); Total Cells Counted 100
[2017-06-24 06:10] LABS: Burr Cells Slight; Giant Platelets Few; Hypochromasia 1+; Microcytosis 1+; Ovalocytes Slight; Platelet Estimate Decreased
[2017-06-24] MEDS ORDERED: SODIUM CHLORIDE 0.9% 1,000 ML IV PRN (06:22)
[2017-06-24] MEDS ORDERED: POTASSIUM CHLORIDE RIDER 10 MEQ in PREMIX 1 EACH IV PRN ×2 (06:24→06:26)
[2017-06-24] MEDS: MEROPENEM 500 MG in SYRINGE 1 EACH IV SCH ×3 (07:55→23:00)
[2017-06-24] MEDS: PROPOFOL 1,000 MG/100 ML BOTTLE IV SCH (08:11)
[2017-06-24] MEDS: ceFAZolin 1,000 MG in SYRINGE 1 EACH IV ONE (08:11)
[2017-06-24] MEDS: HALOPERIDOL 5 MG TABLET PO SCH (08:57)
[2017-06-24] MEDS: amLODIPine 5 MG TABLET PO SCH (08:57)
[2017-06-24] MEDS: BENZTROPINE 1 MG TABLET PO SCH ×2 (08:57→20:28)
[2017-06-24] MEDS: LITHIUM 300 MG CAPSULE PO SCH ×4 (08:57→20:28)
[2017-06-24] MEDS: PANTOPRAZOLE 40 MG TABLET PO SCH (08:57)
[2017-06-24] MEDS: TERBINAFINE 250 MG TABLET PO SCH (08:57)
[2017-06-24] MEDS: CLOTRIMAZOLE 1% CREAM 15 GM TUBE TOP SCH ×2 (08:57→20:29)
[2017-06-24] MEDS: POTASSIUM CHLORIDE 20 MEQ/15 ML UDCUP PER TUBE PRN ×4 (10:12→20:29)
[2017-06-24] MEDS ORDERED: SKIN HEALING OINT (AQUAPHOR) 50 GM TUBE TOP SCH (11:00)
[2017-06-24] MEDS: DEXTROSE 5% 1,000 ML IV SCH (20:38)
[2017-06-24] MEDS: NOREPINEPHRINE 8 MG in SODIUM CHLORIDE 0.9% 242 ML IV SCH (20:56)
[2017-06-25] MEDS: ALBUTEROL/IPRATROPIUM 3 ML NEB RESP TX SCH ×4 (01:43→20:02)
[2017-06-25 03:30] LABS: ABG HCO3 30.8 MMOL/L (20-26); ABG Oxygen Saturation 96.6 % (95-100); ABG PCO2 45.5 MM HG (35-48); ABG PH 7.453 (7.35-7.45); ABG PO2 83.9 MM HG (80-95); ABG TCO2 29.1 MMOL/L (23-27); Pt O2 Delivery Device Ventilator
[2017-06-25 04:37] LABS: Basophils % 0.4 % (0.0-0.8); Eosinophils # 0.1 10*3/uL (0.0-0.87); Eosinophils % 1.7 % (0.00-10.9); Hematocrit 29.7 VOL% (42.0-52.0); Hemoglobin 9.4 GM/DL (14.0-18.0); Immature Granulocytes % 0.6 %; Immature Granulocytes Absolute 0.04 #; Lymphocytes # 1.3 10*3/uL (1.4-4.0); Lymphocytes % 17.7 % (21.2-54.2); Mean Corpuscular HGB Conc 31.6 GM/DL (32-36); Mean Corpuscular Hemoglobin 28 PG (27-34); Mean Corpuscular Volume 88.1 FL (87-102); Monocytes # 0.2 10*3/uL (0.11-0.8); Monocytes % 3.1 % (1.7-12.7); NRBC # 0.07 10*3/uL; Neutrophils # 5.4 10*3/uL (1.4-7.4); Neutrophils % 76.5 % (38.7-73.9); Red Blood Count 3.37 MC/CUMM (3.8-5.5); Red Cell Distribution Width 22.4 % (9.3-17.3); White Blood Count 7.1 T/CUMM (4-12)
[2017-06-25 04:39] LABS: Platelet Count 57 T/CUMM (130-400)
[2017-06-25 05:21] LABS: Band Neutrophils 7 % (0-10); Eosinophils 1 % (0-10); Giant Platelets Few; Hypochromasia 1+; Lymphocytes 14 % (20-55); Nucleated Red Blood Cells 1 (0-5); Ovalocytes Slight; Platelet Estimate Decreased; Segmented Neutrophils 74 % (50-85); Total Cells Counted 100
[2017-06-25 05:22] LABS: Microcytosis 1+
[2017-06-25] MEDS: PROPOFOL 1,000 MG/100 ML BOTTLE IV SCH (06:33)
[2017-06-25] MEDS: MEROPENEM 500 MG in SYRINGE 1 EACH IV SCH ×3 (06:34→21:15)
[2017-06-25 07:09] LABS: Alanine Aminotransferase 29 U/L (16-61); Albumin 1.7 G/DL (3.4-5.0); Alkaline Phosphatase 129 U/L (45-117); Aspartate Amino Transferase 72 U/L (0-37); Bilirubin,Total < 0.39 MG/DL (0.2-1.0); Blood Urea Nitrogen 33 MG/DL (7-18); Calcium 9.4 MG/DL (8.5-10.1); Glucose 108 MG/DL (74-106); Osmolality,Calculated 325.5 MOS/KG (273-304); Potassium 4.3 MMOL/L (3.5-5.1); Total Protein 5.1 G/DL (6.4-8.3)
[2017-06-25 07:13] LABS: Sodium 161 MMOL/L (136-145)
[2017-06-25] MEDS ORDERED: HALOPERIDOL 5 MG TABLET PO SCH (09:00)
[2017-06-25] MEDS: PANTOPRAZOLE 40 MG TABLET PO SCH (09:29)
[2017-06-25] MEDS: BENZTROPINE 1 MG TABLET PO SCH ×2 (09:29→20:19)
[2017-06-25] MEDS: MULTIVITAMIN LIQUID (CENTRUM) 60 ML BOTTLE PO SCH (09:29)
[2017-06-25] MEDS: amLODIPine 5 MG TABLET PO SCH (09:30)
[2017-06-25] MEDS: LITHIUM 300 MG CAPSULE PO SCH ×2 (09:30→20:19)
[2017-06-25] MEDS: CLOTRIMAZOLE 1% CREAM 15 GM TUBE TOP SCH ×2 (09:30→20:19)
[2017-06-25] MEDS: DEXTROSE 5% 1,000 ML IV SCH ×2 (13:52→16:21)
[2017-06-25] MEDS: NOREPINEPHRINE 8 MG in SODIUM CHLORIDE 0.9% 242 ML IV SCH (20:19)
[2017-06-26] MEDS: ALBUTEROL/IPRATROPIUM 3 ML NEB RESP TX SCH ×4 (00:35→20:27)
[2017-06-26] MEDS: DEXTROSE 5% 1,000 ML IV SCH ×2 (03:16→16:34)
[2017-06-26 04:22] LABS: ABG Base Excess 6.7 MMOL/L (-2.5-2.5); ABG HCO3 30.5 MMOL/L (20-26); ABG Oxygen Saturation 97.5 % (95-100); ABG PCO2 42.7 MM HG (35-48); ABG PO2 90.1 MM HG (80-95); ABG TCO2 28.5 MMOL/L (23-27); Allen Test Positive; Pt O2 Delivery Device Ventilator
[2017-06-26 05:57] LABS: Basophils % 0.4 % (0.0-0.8); Eosinophils # 0.1 10*3/uL (0.0-0.87); Eosinophils % 2.8 % (0.00-10.9); Hematocrit 28.3 VOL% (42.0-52.0); Hemoglobin 8.9 GM/DL (14.0-18.0); Immature Granulocytes % 0.8 %; Immature Granulocytes Absolute 0.04 #; Lymphocytes # 1.5 10*3/uL (1.4-4.0); Lymphocytes % 29.9 % (21.2-54.2); Mean Corpuscular HGB Conc 31.4 GM/DL (32-36); Mean Corpuscular Hemoglobin 28 PG (27-34); Mean Corpuscular Volume 90.1 FL (87-102); Monocytes # 0.4 10*3/uL (0.11-0.8); Monocytes % 8.5 % (1.7-12.7); NRBC # 0.08 10*3/uL; Neutrophils # 2.9 10*3/uL (1.4-7.4); Neutrophils % 57.6 % (38.7-73.9); Platelet Count 40 T/CUMM (130-400); Red Blood Count 3.14 MC/CUMM (3.8-5.5); Red Cell Distribution Width 23.4 % (9.3-17.3); White Blood Count 5.1 T/CUMM (4-12)
[2017-06-26] MEDS: MEROPENEM 500 MG in SYRINGE 1 EACH IV SCH ×3 (06:27→21:03)
[2017-06-26 06:33] LABS: Albumin 1.6 G/DL (3.4-5.0); Bilirubin,Total 0.5 MG/DL (0.2-1.0); Potassium 5.2 MMOL/L (3.5-5.1); Total Protein 4.9 G/DL (6.4-8.3)
[2017-06-26 07:39] LABS: Band Neutrophils 2 % (0-10); Eosinophils 2 % (0-10); Hypochromasia 1+; Lymphocytes 38 % (20-55); Microcytosis 1+; Myelocytes 1 %; Nucleated Red Blood Cells 2 (0-5); Segmented Neutrophils 56 % (50-85); Total Cells Counted 100
[2017-06-26 07:40] LABS: Acanthocytes Few; Ovalocytes Slight; Platelet Estimate Decreased; Target Cells Slight
[2017-06-26 08:53] LABS: ABG Base Excess 5.6 MMOL/L (-2.5-2.5); ABG HCO3 29.5 MMOL/L (20-26); ABG Oxygen Saturation 97.7 % (95-100); ABG PCO2 43.3 MM HG (35-48); ABG PH 7.451 (7.35-7.45); ABG TCO2 27.7 MMOL/L (23-27)
[2017-06-26] MEDS: DOCUSATE SODIUM 100 MG/10 ML UDCUP NG PRN ×2 (08:56→20:45)
[2017-06-26] MEDS: MULTIVITAMIN LIQUID (CENTRUM) 60 ML BOTTLE PO SCH (08:56)
[2017-06-26] MEDS: BENZTROPINE 1 MG TABLET PO SCH ×2 (08:56→20:42)
[2017-06-26] MEDS: LANSOPRAZOLE ODT 30 MG TABLET NG SCH (08:57)
[2017-06-26] MEDS: amLODIPine 5 MG TABLET PO SCH (08:59)
[2017-06-26] MEDS: CLOTRIMAZOLE 1% CREAM 15 GM TUBE TOP SCH ×2 (08:59→21:03)
[2017-06-26] MEDS: PROPOFOL 1,000 MG/100 ML BOTTLE IV SCH (08:59)
[2017-06-26] MEDS: LITHIUM 300 MG CAPSULE NG SCH (09:12)
[2017-06-26 14:16] LABS: QuantiFERON-Tb Gold Pl Negative (Negative); TB1 Ag minus Nil Result 0 IU/mL; TB2 Ag Minus Result 0 IU/mL
[2017-06-26] MEDS: NOREPINEPHRINE 8 MG in SODIUM CHLORIDE 0.9% 242 ML IV SCH (20:42)
[2017-06-27] MEDS: ALBUTEROL/IPRATROPIUM 3 ML NEB RESP TX SCH ×4 (00:36→19:45)
[2017-06-27 03:50] LABS: ABG Base Excess 4.5 MMOL/L (-2.5-2.5); ABG HCO3 28.5 MMOL/L (20-26); ABG Oxygen Saturation 97.7 % (95-100); ABG PCO2 41.5 MM HG (35-48); ABG PO2 93.4 MM HG (80-95); ABG TCO2 26.7 MMOL/L (23-27)
[2017-06-27 05:26] LABS: Basophils % 0.6 % (0.0-0.8); Eosinophils # 0.2 10*3/uL (0.0-0.87); Eosinophils % 3.1 % (0.00-10.9); Hematocrit 26.7 VOL% (42.0-52.0); Hemoglobin 8.6 GM/DL (14.0-18.0); Immature Granulocytes % 0.6 %; Immature Granulocytes Absolute 0.04 #; Lymphocytes # 2.3 10*3/uL (1.4-4.0); Lymphocytes % 33.3 % (21.2-54.2); Mean Corpuscular HGB Conc 32.2 GM/DL (32-36); Mean Corpuscular Hemoglobin 28 PG (27-34); Mean Corpuscular Volume 87.8 FL (87-102); Mean Platelet Volume 11.1 FL (9.6-12.0); Monocytes # 0.8 10*3/uL (0.11-0.8); Monocytes % 10.9 % (1.7-12.7); NRBC # 0.09 10*3/uL; Neutrophils # 3.6 10*3/uL (1.4-7.4); Neutrophils % 51.5 % (38.7-73.9); Platelet Count 100 T/CUMM (130-400); Red Blood Count 3.04 MC/CUMM (3.8-5.5); Red Cell Distribution Width 22.6 % (9.3-17.3)
[2017-06-27] MEDS: MEROPENEM 500 MG in SYRINGE 1 EACH IV SCH ×3 (05:30→21:49)
[2017-06-27 05:49] LABS: Band Neutrophils 9 % (0-10); Eosinophils 5 % (0-10); Lymphocytes 28 % (20-55); Platelet Estimate Decreased; Segmented Neutrophils 50 % (50-85); Total Cells Counted 100
[2017-06-27 05:50] LABS: Burr Cells Slight; Giant Platelets Few; Hypochromasia 1+; Microcytosis 1+; Ovalocytes Slight
[2017-06-27 06:04] LABS: Calcium 8.4 MG/DL (8.5-10.1); Osmolality,Calculated 302.9 MOS/KG (273-304); Potassium 4.5 MMOL/L (3.5-5.1); Prealbumin 11.2 MG/DL (20-40)
[2017-06-27 06:06] LABS: Calcium 8.8 MG/DL (8.5-10.1); Osmolality,Calculated 302.9 MOS/KG (273-304); Potassium 4.4 MMOL/L (3.5-5.1)
[2017-06-27] MEDS: DEXTROSE 5% 1,000 ML IV SCH ×2 (06:32→20:16)
[2017-06-27] MEDS: BENZTROPINE 1 MG TABLET PO SCH ×2 (09:25→21:49)
[2017-06-27] MEDS: MULTIVITAMIN LIQUID (CENTRUM) 60 ML BOTTLE PO SCH (09:25)
[2017-06-27] MEDS: CLOTRIMAZOLE 1% CREAM 15 GM TUBE TOP SCH ×2 (09:26→21:45)
[2017-06-27] MEDS: LITHIUM 300 MG CAPSULE NG SCH (09:26)
[2017-06-27] MEDS: LANSOPRAZOLE ODT 30 MG TABLET NG SCH (09:27)
[2017-06-27] MEDS: amLODIPine 5 MG TABLET PO SCH (09:27)
[2017-06-27] MEDS: PROPOFOL 1,000 MG/100 ML BOTTLE IV SCH (09:33)
[2017-06-27 10:02] LABS: ABG Base Excess 6.7 MMOL/L (-2.5-2.5); ABG HCO3 30.3 MMOL/L (20-26); ABG Oxygen Saturation 93.9 % (95-100); ABG PCO2 38.8 MM HG (35-48); ABG PO2 69.3 MM HG (80-95); ABG TCO2 31.5 MMOL/L (23-27)
[2017-06-27] MEDS: NOREPINEPHRINE 8 MG in SODIUM CHLORIDE 0.9% 242 ML IV SCH (21:38)
[2017-06-28] MEDS: ALBUTEROL/IPRATROPIUM 3 ML NEB RESP TX SCH ×4 (01:36→20:01)
[2017-06-28 05:46] LABS: Osmolality,Calculated 287.7 MOS/KG (273-304); Potassium 4.2 MMOL/L (3.5-5.1)
[2017-06-28] MEDS: MEROPENEM 500 MG in SYRINGE 1 EACH IV SCH ×3 (06:20→21:38)
[2017-06-28] MEDS: PROPOFOL 1,000 MG/100 ML BOTTLE IV SCH ×2 (06:54→15:07)
[2017-06-28] MEDS: DEXTROSE 5% 1,000 ML IV SCH ×4 (06:54→19:45)
[2017-06-28] MEDS ORDERED: DEXTROSE 50% 25 GM/50 ML VIAL IV ONE (11:27)
[2017-06-28] MEDS: DEXTROSE 50% 25 GM/50 ML VIAL IV PRN ×2 (11:39→15:07)
[2017-06-28] MEDS ORDERED: MIDAZOLAM 2 MG/2 ML VIAL ONE (12:49)
[2017-06-28] MEDS ORDERED: NOREPINEPHRINE 4 MG/4 ML VIAL IV ONE (13:01)
[2017-06-28] MEDS ORDERED: LIDOCAINE 1% 5 ML VIAL ONE (13:15)
[2017-06-28] MEDS ORDERED: PROPOFOL 200 MG/20 ML VIAL IV ONE (13:15)
[2017-06-28] MEDS: LITHIUM 300 MG CAPSULE NG SCH (15:16)
[2017-06-28] MEDS: BENZTROPINE 1 MG TABLET PO SCH ×2 (15:16→20:20)
[2017-06-28] MEDS: amLODIPine 5 MG TABLET PO SCH (15:16)
[2017-06-28] MEDS: MULTIVITAMIN LIQUID (CENTRUM) 60 ML BOTTLE PO SCH (15:16)
[2017-06-28] MEDS: LANSOPRAZOLE ODT 30 MG TABLET NG SCH (15:16)
[2017-06-28] MEDS: CLOTRIMAZOLE 1% CREAM 15 GM TUBE TOP SCH ×2 (15:16→20:29)
[2017-06-28] MEDS: NOREPINEPHRINE 8 MG in SODIUM CHLORIDE 0.9% 242 ML IV SCH (21:38)
[2017-06-29] MEDS: ALBUTEROL/IPRATROPIUM 3 ML NEB RESP TX SCH ×4 (02:04→19:06)
[2017-06-29 03:54] LABS: Basophils # 0.1 10*3/uL (0.0-0.2); Basophils % 0.6 % (0.0-0.8); Eosinophils # 0.2 10*3/uL (0.0-0.87); Hematocrit 24.3 VOL% (42.0-52.0); Hemoglobin 7.7 GM/DL (14.0-18.0); Immature Granulocytes % 0.9 %; Immature Granulocytes Absolute 0.07 #; Lymphocytes # 2.3 10*3/uL (1.4-4.0); Lymphocytes % 28.4 % (21.2-54.2); Mean Corpuscular HGB Conc 31.7 GM/DL (32-36); Mean Corpuscular Hemoglobin 28 PG (27-34); Mean Corpuscular Volume 87.4 FL (87-102); Mean Platelet Volume 11.3 FL (9.6-12.0); Monocytes # 0.9 10*3/uL (0.11-0.8); Monocytes % 11.3 % (1.7-12.7); NRBC # 0.07 10*3/uL; Neutrophils # 4.6 10*3/uL (1.4-7.4); Neutrophils % 56.8 % (38.7-73.9); Platelet Count 119 T/CUMM (130-400); Red Blood Count 2.78 MC/CUMM (3.8-5.5)
[2017-06-29 04:20] LABS: Albumin 1.7 G/DL (3.4-5.0); Bilirubin,Direct 0.17 MG/DL (0.0-0.20); Bilirubin,Indirect 0.5 MG/DL (0.0-1.0); Bilirubin,Total 0.7 MG/DL (0.2-1.0); Total Protein 5.3 G/DL (6.4-8.3)
[2017-06-29 04:41] LABS: Acanthocytes Few; Anisocytosis 1+; Hypochromasia 1+; Platelet Estimate Normal
[2017-06-29] MEDS: MEROPENEM 500 MG in SYRINGE 1 EACH IV SCH ×3 (05:55→21:10)
[2017-06-29] MEDS: DEXTROSE 5% 1,000 ML IV SCH ×2 (06:21→17:08)
[2017-06-29 06:49] LABS: Calcium 8.2 MG/DL (8.5-10.1); Osmolality,Calculated 282.1 MOS/KG (273-304); Potassium 3.6 MMOL/L (3.5-5.1)
[2017-06-29] MEDS: LANSOPRAZOLE ODT 30 MG TABLET NG SCH (09:43)
[2017-06-29] MEDS: amLODIPine 5 MG TABLET PO SCH (09:43)
[2017-06-29] MEDS: MULTIVITAMIN LIQUID (CENTRUM) 60 ML BOTTLE PO SCH (09:43)
[2017-06-29] MEDS: BENZTROPINE 1 MG TABLET PO SCH ×2 (09:43→20:29)
[2017-06-29] MEDS: LITHIUM 300 MG CAPSULE NG SCH (09:44)
[2017-06-29] MEDS: CLOTRIMAZOLE 1% CREAM 15 GM TUBE TOP SCH ×2 (09:44→20:29)
[2017-06-29] MEDS: POTASSIUM CHLORIDE 20 MEQ/15 ML UDCUP PER TUBE PRN ×2 (09:44→13:03)
[2017-06-29] MEDS: PROPOFOL 1,000 MG/100 ML BOTTLE IV SCH ×2 (09:57→20:55)
[2017-06-29] MEDS ORDERED: SODIUM CHLORIDE 0.9% 1,000 ML IV PRN (10:52)
[2017-06-29 11:24] LABS: Basophils # 0.1 10*3/uL (0.0-0.2); Basophils % 0.7 % (0.0-0.8); Eosinophils # 0.2 10*3/uL (0.0-0.87); Hematocrit 25.1 VOL% (42.0-52.0); Hemoglobin 7.9 GM/DL (14.0-18.0); Immature Granulocytes % 0.6 %; Immature Granulocytes Absolute 0.05 #; Lymphocytes # 1.9 10*3/uL (1.4-4.0); Lymphocytes % 23.2 % (21.2-54.2); Mean Corpuscular HGB Conc 31.5 GM/DL (32-36); Mean Corpuscular Hemoglobin 29 PG (27-34); Mean Corpuscular Volume 90.6 FL (87-102); Mean Platelet Volume 10.9 FL (9.6-12.0); Monocytes # 0.8 10*3/uL (0.11-0.8); Monocytes % 9.8 % (1.7-12.7); NRBC # 0.02 10*3/uL; Neutrophils # 5.1 10*3/uL (1.4-7.4); Neutrophils % 63.7 % (38.7-73.9); Platelet Count 182 T/CUMM (130-400); Red Blood Count 2.77 MC/CUMM (3.8-5.5); Red Cell Distribution Width 21.9 % (9.3-17.3); White Blood Count 8.1 T/CUMM (4-12)
[2017-06-29 12:22] LABS: Folate 7.8 NG/ML (5.4-24.0); Vitamin B12 1905 PG/ML (211-911)
[2017-06-29] MEDS: NOREPINEPHRINE 8 MG in SODIUM CHLORIDE 0.9% 242 ML IV SCH (20:30)
[2017-06-30] MEDS: ALBUTEROL/IPRATROPIUM 3 ML NEB RESP TX SCH ×4 (00:29→19:06)
[2017-06-30] MEDS: DEXTROSE 5% 1,000 ML IV SCH ×3 (02:18→21:55)
[2017-06-30 04:43] LABS: ABG Base Excess 4.9 MMOL/L (-2.5-2.5); ABG HCO3 28.8 MMOL/L (20-26); ABG PCO2 39.8 MM HG (35-48); ABG PH 7.478 (7.35-7.45); ABG PO2 92.8 MM HG (80-95); ABG TCO2 30.1 MMOL/L (23-27); Allen Test Positive; Pt O2 Delivery Device Ventilator
[2017-06-30] MEDS: MEROPENEM 500 MG in SYRINGE 1 EACH IV SCH ×3 (05:57→21:55)
[2017-06-30 06:46] LABS: Basophils # 0.1 10*3/uL (0.0-0.2); Basophils % 0.8 % (0.0-0.8); Eosinophils # 0.1 10*3/uL (0.0-0.87); Eosinophils % 1.3 % (0.00-10.9); Hematocrit 26.7 VOL% (42.0-52.0); Hemoglobin 8.6 GM/DL (14.0-18.0); Immature Granulocytes % 0.7 %; Immature Granulocytes Absolute 0.05 #; Lymphocytes # 1.7 10*3/uL (1.4-4.0); Lymphocytes % 21.7 % (21.2-54.2); Mean Corpuscular HGB Conc 32.2 GM/DL (32-36); Mean Corpuscular Hemoglobin 28 PG (27-34); Mean Platelet Volume 11.6 FL (9.6-12.0); Monocytes # 0.7 10*3/uL (0.11-0.8); Monocytes % 9.7 % (1.7-12.7); Neutrophils % 65.8 % (38.7-73.9); Platelet Count 222 T/CUMM (130-400); Red Blood Count 3.07 MC/CUMM (3.8-5.5); Red Cell Distribution Width 21.2 % (9.3-17.3); White Blood Count 7.7 T/CUMM (4-12)
[2017-06-30 07:19] LABS: Calcium 7.9 MG/DL (8.5-10.1); Osmolality,Calculated 277.4 MOS/KG (273-304); Potassium 3.9 MMOL/L (3.5-5.1)
[2017-06-30 08:01] LABS: Anisocytosis Slight; Band Neutrophils 3 % (0-10); Lymphocytes 16 % (20-55); Platelet Estimate Normal; Segmented Neutrophils 77 % (50-85); Total Cells Counted 100
[2017-06-30] MEDS: PROPOFOL 1,000 MG/100 ML BOTTLE IV SCH ×2 (08:16→18:00)
[2017-06-30] MEDS: LITHIUM 300 MG CAPSULE NG SCH (09:45)
[2017-06-30] MEDS: amLODIPine 5 MG TABLET PO SCH (09:45)
[2017-06-30] MEDS: LANSOPRAZOLE ODT 30 MG TABLET NG SCH (09:46)
[2017-06-30] MEDS: BENZTROPINE 1 MG TABLET PO SCH ×2 (09:46→20:17)
[2017-06-30] MEDS: CLOTRIMAZOLE 1% CREAM 15 GM TUBE TOP SCH ×2 (09:46→20:18)
[2017-06-30] MEDS: MULTIVITAMIN LIQUID (CENTRUM) 60 ML BOTTLE PO SCH (09:48)
[2017-06-30] MEDS: NOREPINEPHRINE 8 MG in SODIUM CHLORIDE 0.9% 242 ML IV SCH (20:17)
[2017-07-01] MEDS: ALBUTEROL/IPRATROPIUM 3 ML NEB RESP TX SCH ×4 (00:13→19:04)
[2017-07-01 03:55] LABS: ABG Base Excess 5.7 MMOL/L (-2.5-2.5); ABG HCO3 29.6 MMOL/L (20-26); ABG Oxygen Saturation 99.5 % (95-100); ABG PCO2 40.3 MM HG (35-48); ABG PH 7.476 (7.35-7.45); ABG TCO2 26.6 MMOL/L (23-27); Allen Test Positive; Pt O2 Delivery Device Ventilator
[2017-07-01] MEDS: MEROPENEM 500 MG in SYRINGE 1 EACH IV SCH ×3 (05:22→21:30)
[2017-07-01 05:48] LABS: Calcium 7.6 MG/DL (8.5-10.1); Osmolality,Calculated 287.7 MOS/KG (273-304); Prealbumin 14.7 MG/DL (20-40)
[2017-07-01] MEDS ORDERED: LIDOCAINE 2% 20 ML VIAL RESP TX ONE (06:53)
[2017-07-01] MEDS ORDERED: LIDOCAINE 1% 20 ML VIAL MISC INJ ONE (06:53)
[2017-07-01 08:11] LABS: Sedimentation Rate-Westergren 78 MM/HR (0-15)
[2017-07-01] MEDS: DORNASE ALFA 2.5 MG/2.5 ML VIAL RESP TX SCH ×2 (08:15→19:10)
[2017-07-01] MEDS: PROPOFOL 1,000 MG/100 ML BOTTLE IV SCH (08:16)
[2017-07-01] MEDS: DEXTROSE 5% 1,000 ML IV SCH ×2 (08:28→18:29)
[2017-07-01] MEDS: VANCOMYCIN INJ 1,000 MG in SODIUM CHLORIDE 0.9% 250 ML IV SCH ×2 (09:05→20:19)
[2017-07-01] MEDS: MULTIVITAMIN LIQUID (CENTRUM) 60 ML BOTTLE PO SCH (09:33)
[2017-07-01] MEDS: LITHIUM 300 MG CAPSULE NG SCH (09:34)
[2017-07-01] MEDS: BENZTROPINE 1 MG TABLET PO SCH ×2 (09:34→20:20)
[2017-07-01] MEDS: amLODIPine 5 MG TABLET PO SCH (09:35)
[2017-07-01] MEDS: LANSOPRAZOLE ODT 30 MG TABLET NG SCH (09:35)
[2017-07-01 10:12] LABS: Hemoglobin A1 (Alkaline) 97.7 % (96.5-98.5); Hemoglobin A2 (Alkaline) 2.3 % (1.5-3.5)
[2017-07-01] MEDS: CLOTRIMAZOLE 1% CREAM 15 GM TUBE TOP SCH ×2 (13:41→20:21)
[2017-07-01] MEDS ORDERED: ACETAMINOPHEN 325 MG TABLET PO PRN (19:52)
[2017-07-01] MEDS: NOREPINEPHRINE 8 MG in SODIUM CHLORIDE 0.9% 242 ML IV SCH (20:34)
[2017-07-02] MEDS: ALBUTEROL/IPRATROPIUM 3 ML NEB RESP TX SCH ×4 (01:04→19:32)
[2017-07-02 03:46] LABS: ABG Base Excess 5.1 MMOL/L (-2.5-2.5); ABG PCO2 39.5 MM HG (35-48); ABG PH 7.475 (7.35-7.45); ABG TCO2 25.1 MMOL/L (23-27)
[2017-07-02] MEDS: DEXTROSE 5% 1,000 ML IV SCH ×3 (03:54→23:40)
[2017-07-02] MEDS: MEROPENEM 500 MG in SYRINGE 1 EACH IV SCH ×4 (05:37→21:16)
[2017-07-02 05:49] LABS: Basophils # 0.1 10*3/uL (0.0-0.2); Basophils % 0.6 % (0.0-0.8); Eosinophils # 0.2 10*3/uL (0.0-0.87); Eosinophils % 1.8 % (0.00-10.9); Hematocrit 23.9 VOL% (42.0-52.0); Immature Granulocytes % 0.6 %; Immature Granulocytes Absolute 0.06 #; Lymphocytes % 19.6 % (21.2-54.2); Mean Corpuscular HGB Conc 32.2 GM/DL (32-36); Mean Corpuscular Hemoglobin 28 PG (27-34); Monocytes # 0.9 10*3/uL (0.11-0.8); Monocytes % 8.9 % (1.7-12.7); Neutrophils % 68.5 % (38.7-73.9); Red Blood Count 2.78 MC/CUMM (3.8-5.5); Red Cell Distribution Width 21.1 % (9.3-17.3)
[2017-07-02 06:06] LABS: Hemoglobin 7.7 GM/DL (14.0-18.0); Platelet Count 448 T/CUMM (130-400); White Blood Count 10.2 T/CUMM (4-12)
[2017-07-02 06:13] LABS: Calcium 7.7 MG/DL (8.5-10.1); Osmolality,Calculated 275.5 MOS/KG (273-304); Potassium 3.9 MMOL/L (3.5-5.1)
[2017-07-02 06:16] LABS: Band Neutrophils 4 % (0-10); Eosinophils 2 % (0-10); Hypochromasia 1+; Lymphocytes 17 % (20-55); Segmented Neutrophils 70 % (50-85); Total Cells Counted 100
[2017-07-02 06:17] LABS: Macrocytosis 1+; Platelet Estimate Increased; Polychromasia Slight; Target Cells Slight
[2017-07-02] MEDS: DORNASE ALFA 2.5 MG/2.5 ML VIAL RESP TX SCH ×2 (07:31→19:32)
[2017-07-02 08:29] LABS: Allen Test Positive; Pt O2 Delivery Device CPAP
[2017-07-02 08:30] LABS: ABG Base Excess 5.8 MMOL/L (-2.5-2.5); ABG HCO3 29.7 MMOL/L (20-26); ABG Oxygen Saturation 98.8 % (95-100); ABG PCO2 38.5 MM HG (35-48); ABG PH 7.492 (7.35-7.45); ABG TCO2 27.5 MMOL/L (23-27)
[2017-07-02] MEDS: VANCOMYCIN INJ 1,000 MG in SODIUM CHLORIDE 0.9% 250 ML IV SCH ×2 (08:54→20:44)
[2017-07-02] MEDS: MULTIVITAMIN LIQUID (CENTRUM) 60 ML BOTTLE PO SCH (09:55)
[2017-07-02] MEDS: BENZTROPINE 1 MG TABLET PO SCH ×2 (09:56→20:44)
[2017-07-02] MEDS: LITHIUM 300 MG CAPSULE NG SCH (09:56)
[2017-07-02] MEDS: amLODIPine 5 MG TABLET PO SCH (09:56)
[2017-07-02] MEDS: LANSOPRAZOLE ODT 30 MG TABLET NG SCH (09:57)
[2017-07-02] MEDS: CLOTRIMAZOLE 1% CREAM 15 GM TUBE TOP SCH ×2 (09:57→20:45)
[2017-07-02 14:08] LABS: ABG Base Excess 5.1 MMOL/L (-2.5-2.5); ABG HCO3 29.1 MMOL/L (20-26); ABG Oxygen Saturation 99.8 % (95-100); ABG PCO2 40.4 MM HG (35-48); ABG PH 7.467 (7.35-7.45); ABG TCO2 27.3 MMOL/L (23-27); Pt O2 Delivery Device Venturi Mask
[2017-07-02] MEDS: NOREPINEPHRINE 8 MG in SODIUM CHLORIDE 0.9% 242 ML IV SCH (20:12)
[2017-07-03] MEDS: ALBUTEROL/IPRATROPIUM 3 ML NEB RESP TX SCH ×4 (00:54→19:41)
[2017-07-03] MEDS: MEROPENEM 500 MG in SYRINGE 1 EACH IV SCH ×3 (05:12→21:00)
[2017-07-03] MEDS: DORNASE ALFA 2.5 MG/2.5 ML VIAL RESP TX SCH ×2 (07:00→19:45)
[2017-07-03] MEDS: PROPOFOL 1,000 MG/100 ML BOTTLE IV SCH (07:40)
[2017-07-03] MEDS: HALOPERIDOL 5 MG TABLET PO SCH (08:26)
[2017-07-03] MEDS: LANSOPRAZOLE ODT 30 MG TABLET NG SCH (08:27)
[2017-07-03] MEDS: LITHIUM 300 MG CAPSULE NG SCH (08:27)
[2017-07-03] MEDS: CLOTRIMAZOLE 1% CREAM 15 GM TUBE TOP SCH ×2 (08:27→20:43)
[2017-07-03] MEDS: amLODIPine 5 MG TABLET PO SCH (08:30)
[2017-07-03] MEDS: MULTIVITAMIN LIQUID (CENTRUM) 60 ML BOTTLE PO SCH (08:30)
[2017-07-03] MEDS: BENZTROPINE 1 MG TABLET PO SCH ×2 (08:30→20:41)
[2017-07-03] MEDS: DEXTROSE 5% 1,000 ML IV SCH ×2 (10:00→20:43)
[2017-07-04] MEDS: ALBUTEROL/IPRATROPIUM 3 ML NEB RESP TX SCH ×4 (00:53→19:06)
[2017-07-04] MEDS: MEROPENEM 500 MG in SYRINGE 1 EACH IV SCH (05:41)
[2017-07-04] MEDS: DEXTROSE 5% 1,000 ML IV SCH ×2 (05:42→17:02)
[2017-07-04 07:00] LABS: Basophils # 0.1 10*3/uL (0.0-0.2); Basophils % 0.7 % (0.0-0.8); Eosinophils # 0.2 10*3/uL (0.0-0.87); Eosinophils % 2.7 % (0.00-10.9); Hematocrit 27.3 VOL% (42.0-52.0); Hemoglobin 8.6 GM/DL (14.0-18.0); Immature Granulocytes % 0.6 %; Immature Granulocytes Absolute 0.04 #; Lymphocytes # 1.3 10*3/uL (1.4-4.0); Mean Corpuscular HGB Conc 31.5 GM/DL (32-36); Mean Corpuscular Hemoglobin 28 PG (27-34); Mean Corpuscular Volume 87.5 FL (87-102); Mean Platelet Volume 11.9 FL (9.6-12.0); Monocytes # 0.5 10*3/uL (0.11-0.8); Monocytes % 6.4 % (1.7-12.7); Neutrophils % 71.6 % (38.7-73.9); Platelet Count 353 T/CUMM (130-400); Red Blood Count 3.12 MC/CUMM (3.8-5.5)
[2017-07-04 07:20] LABS: Folate 8.9 NG/ML (5.4-24.0); Vitamin B12 1857 PG/ML (211-911)
[2017-07-04 07:21] LABS: Albumin 1.7 G/DL (3.4-5.0); Bilirubin,Total 0.4 MG/DL (0.2-1.0); Calcium 8.3 MG/DL (8.5-10.1); Osmolality,Calculated 272.5 MOS/KG (273-304); Potassium 4.4 MMOL/L (3.5-5.1); Prealbumin 16.6 MG/DL (20-40); Total Protein 5.5 G/DL (6.4-8.3)
[2017-07-04] MEDS: DORNASE ALFA 2.5 MG/2.5 ML VIAL RESP TX SCH (07:21)
[2017-07-04 07:22] LABS: Hypochromasia 1+; Macrocytosis 2+; Platelet Estimate Adequate; Polychromasia Slight; Target Cells Slight
[2017-07-04 07:36] LABS: % Iron Saturation 14.4 % (18-50); Ferritin 215.9 ng/ml (26-388)
[2017-07-04] MEDS: LANSOPRAZOLE ODT 30 MG TABLET NG SCH (08:46)
[2017-07-04] MEDS: amLODIPine 5 MG TABLET PO SCH (08:46)
[2017-07-04] MEDS: LITHIUM 300 MG CAPSULE NG SCH ×2 (08:46→20:59)
[2017-07-04] MEDS: BENZTROPINE 1 MG TABLET PO SCH ×2 (08:46→20:59)
[2017-07-04] MEDS: LEVOFLOXACIN 250 MG TABLET PO SCH (08:46)
[2017-07-04] MEDS ORDERED: TUBERCULIN SKIN TEST 0.1 ML SYRINGE INTRADERM ONE (08:55)
[2017-07-04] MEDS: HALOPERIDOL 5 MG TABLET PO SCH (08:56)
[2017-07-04] MEDS: MULTIVITAMIN LIQUID (CENTRUM) 60 ML BOTTLE PO SCH (09:55)
[2017-07-04] MEDS: CLOTRIMAZOLE 1% CREAM 15 GM TUBE TOP SCH (09:55)
[2017-07-04 09:57] LABS: Hemoglobin A1 (Alkaline) 97.6 % (96.5-98.5); Hemoglobin A2 (Alkaline) 2.4 % (1.5-3.5)
[2017-07-04 10:36] LABS: Sedimentation Rate-Westergren 48 MM/HR (0-15)
[2017-07-05] MEDS: ALBUTEROL/IPRATROPIUM 3 ML NEB RESP TX SCH ×4 (00:08→18:55)
[2017-07-05] MEDS: DEXTROSE 5% 1,000 ML IV SCH ×2 (04:18→16:39)
[2017-07-05] MEDS: BENZTROPINE 1 MG TABLET PO SCH ×2 (08:58→22:41)
[2017-07-05] MEDS: amLODIPine 5 MG TABLET PO SCH (08:59)
[2017-07-05] MEDS: HALOPERIDOL 5 MG TABLET PO SCH (08:59)
[2017-07-05] MEDS: LEVOFLOXACIN 250 MG TABLET PO SCH (09:00)
[2017-07-05] MEDS: LITHIUM 300 MG CAPSULE NG SCH ×2 (09:00→22:41)
[2017-07-05] MEDS: LANSOPRAZOLE ODT 30 MG TABLET NG SCH (09:00)
[2017-07-05] MEDS: MULTIVITAMIN LIQUID (CENTRUM) 60 ML BOTTLE PO SCH (09:01)
[2017-07-05] MEDS: COLLAGENASE OINT 30 GM TUBE TOP SCH (12:40)
[2017-07-05] MEDS ORDERED: TUBERCULIN SKIN TEST 0.1 ML SYRINGE INTRADERM ONE (12:59)
[2017-07-06] MEDS: ALBUTEROL/IPRATROPIUM 3 ML NEB RESP TX SCH ×4 (00:31→19:20)
[2017-07-06] MEDS: DEXTROSE 5% 1,000 ML IV SCH ×2 (03:28→18:16)
[2017-07-06] MEDS: LEVOFLOXACIN 250 MG TABLET PO SCH (10:49)
[2017-07-06] MEDS: BENZTROPINE 1 MG TABLET PO SCH ×2 (10:49→21:18)
[2017-07-06] MEDS: LITHIUM 300 MG CAPSULE NG SCH ×2 (10:50→21:17)
[2017-07-06] MEDS: LANSOPRAZOLE ODT 30 MG TABLET NG SCH (10:50)
[2017-07-06] MEDS: MULTIVITAMIN LIQUID (CENTRUM) 60 ML BOTTLE PO SCH (10:50)
[2017-07-06] MEDS: amLODIPine 5 MG TABLET PO SCH (10:50)
[2017-07-06] MEDS: HALOPERIDOL 5 MG TABLET PO SCH (10:50)
[2017-07-06] MEDS: COLLAGENASE OINT 30 GM TUBE TOP SCH (10:56)
[2017-07-07] MEDS: DEXTROSE 5% 1,000 ML IV SCH ×3 (05:11→16:15)
[2017-07-07 05:38] LABS: Basophils # 0.1 10*3/uL (0.0-0.2); Basophils % 1.4 % (0.0-0.8); Eosinophils # 0.2 10*3/uL (0.0-0.87); Eosinophils % 3.7 % (0.00-10.9); Hematocrit 30.9 VOL% (42.0-52.0); Hemoglobin 9.8 GM/DL (14.0-18.0); Immature Granulocytes % 0.6 %; Immature Granulocytes Absolute 0.04 #; Lymphocytes # 1.8 10*3/uL (1.4-4.0); Lymphocytes % 26.8 % (21.2-54.2); Mean Corpuscular HGB Conc 31.7 GM/DL (32-36); Mean Corpuscular Hemoglobin 28 PG (27-34); Mean Corpuscular Volume 87.3 FL (87-102); Mean Platelet Volume 12.9 FL (9.6-12.0); Monocytes # 0.7 10*3/uL (0.11-0.8); Monocytes % 10.4 % (1.7-12.7); Neutrophils # 3.7 10*3/uL (1.4-7.4); Neutrophils % 57.1 % (38.7-73.9); Platelet Count 409 T/CUMM (130-400); Red Blood Count 3.54 MC/CUMM (3.8-5.5); Red Cell Distribution Width 21.7 % (9.3-17.3); White Blood Count 6.5 T/CUMM (4-12)
[2017-07-07 06:08] LABS: Eosinophils 7 % (0-10); Hypochromasia 1+; Lymphocytes 29 % (20-55); Ovalocytes Slight; Platelet Estimate Adequate; Segmented Neutrophils 57 % (50-85); Total Cells Counted 100
[2017-07-07 06:09] LABS: Giant Platelets Few; Macrocytosis Slight; Polychromasia Slight
[2017-07-07 06:12] LABS: Albumin 1.9 G/DL (3.4-5.0); Bilirubin,Total 0.7 MG/DL (0.2-1.0); Calcium 8.3 MG/DL (8.5-10.1); Osmolality,Calculated 270.7 MOS/KG (273-304); Potassium 4.4 MMOL/L (3.5-5.1); Total Protein 5.8 G/DL (6.4-8.3)
[2017-07-07] MEDS: ALBUTEROL/IPRATROPIUM 3 ML NEB RESP TX SCH ×4 (06:57→19:06)
[2017-07-07] MEDS: BENZTROPINE 1 MG TABLET PO SCH ×2 (10:14→22:39)
[2017-07-07] MEDS: LANSOPRAZOLE ODT 30 MG TABLET NG SCH (10:15)
[2017-07-07] MEDS: LITHIUM 300 MG CAPSULE NG SCH ×2 (10:16→22:40)
[2017-07-07] MEDS: amLODIPine 5 MG TABLET PO SCH (10:17)
[2017-07-07] MEDS: MULTIVITAMIN LIQUID (CENTRUM) 60 ML BOTTLE PO SCH (10:18)
[2017-07-07] MEDS: HALOPERIDOL 5 MG TABLET PO SCH (10:18)
[2017-07-07] MEDS: LEVOFLOXACIN 250 MG TABLET PO SCH (12:10)
[2017-07-07] MEDS: COLLAGENASE OINT 30 GM TUBE TOP SCH (16:07)
[2017-07-08] MEDS: ALBUTEROL/IPRATROPIUM 3 ML NEB RESP TX SCH ×3 (00:10→12:02)
[2017-07-08] MEDS: DEXTROSE 5% 1,000 ML IV SCH (03:30)
[2017-07-08] MEDS: BENZTROPINE 1 MG TABLET PO SCH (09:27)
[2017-07-08] MEDS: LANSOPRAZOLE ODT 30 MG TABLET NG SCH (09:27)
[2017-07-08] MEDS: LITHIUM 300 MG CAPSULE NG SCH (09:27)
[2017-07-08] MEDS: HALOPERIDOL 5 MG TABLET PO SCH (09:27)
[2017-07-08] MEDS: amLODIPine 5 MG TABLET PO SCH (09:27)
[2017-07-08] MEDS: MULTIVITAMIN LIQUID (CENTRUM) 60 ML BOTTLE PO SCH (09:30)
[2017-07-08] MEDS: COLLAGENASE OINT 30 GM TUBE TOP SCH (09:49)
[2017-07-08 12:12] VITALS: BP 100/56
== END 2017-07-08 13:00 | DRG 740 ==
LOC: N.ED 08:46 → N.EDINP 11:32 → SUATTDRO 11:32 → SUPCPDRO 11:32 → N.EDINP 13:02 → N.3E 13:08 → N.CC 06-20 23:45 → N.2E 07-03 16:30
PROVIDERS: ADMIT Hospitalist; ATTEND Internal Medicine
PROC: EGDWPEG (ICD-10-PCS; 2017-06-28 13:05)

== ENCOUNTER 2017-10-18 12:20 | Inpatient (IN) ==
[2017-10-18] MEDS ORDERED: PANTOPRAZOLE INJ 80 MG in SODIUM CHLORIDE 0.9% 100 ML IV ONE (13:55)
[2017-10-18 14:01] LABS: Basophils # 0.1 10*3/uL (0.0-0.2); Eosinophils # 0.3 10*3/uL (0.0-0.87); Eosinophils % 3.6 % (0.00-10.9); Hematocrit 40.3 VOL% (42.0-52.0); Hemoglobin 13.2 GM/DL (14.0-18.0); Immature Granulocytes % 0.5 %; Immature Granulocytes Absolute 0.04 #; Lymphocytes # 2.4 10*3/uL (1.4-4.0); Lymphocytes % 27.1 % (21.2-54.2); Mean Corpuscular HGB Conc 32.8 GM/DL (32-36); Mean Corpuscular Hemoglobin 28 PG (27-34); Mean Corpuscular Volume 86.5 FL (87-102); Mean Platelet Volume 10.8 FL (9.6-12.0); Monocytes # 0.9 10*3/uL (0.11-0.8); Monocytes % 10.2 % (1.7-12.7); Neutrophils # 5.1 10*3/uL (1.4-7.4); Neutrophils % 57.6 % (38.7-73.9); Platelet Count 231 T/CUMM (130-400); Red Blood Count 4.66 MC/CUMM (3.8-5.5); Red Cell Distribution Width 13.5 % (9.3-17.3); White Blood Count 8.9 T/CUMM (4-12)
[2017-10-18 14:08] LABS: PT Patient Result 10.8 SECS; Partial Thromboplastin Time 31.3 SECS (0-40)
[2017-10-18 14:13] LABS: Albumin 3.1 G/DL (3.4-5.0); Bilirubin,Total 0.4 MG/DL (0.2-1.0); Calcium 9.1 MG/DL (8.5-10.1); Osmolality,Calculated 277.3 MOS/KG (273-304); Potassium 3.6 MMOL/L (3.5-5.1); Total Protein 6.8 G/DL (6.4-8.3)
[2017-10-18] MEDS ORDERED: SODIUM CHLORIDE 0.9% 1,000 ML IV STA (14:24)
[2017-10-18] MEDS ORDERED: ONDANSETRON 4 MG/2 ML VIAL IV PRN (15:53)
[2017-10-18] MEDS ORDERED: MORPHINE 4 MG/1 ML VIAL IV PRN (15:53)
[2017-10-18] MEDS ORDERED: NICOTINE 21 MG/24 HR PATCH TRANSDERM PRN (15:53)
[2017-10-18] MEDS: SODIUM CHLORIDE 0.9% 1,000 ML IV SCH (18:14)
[2017-10-18 19:38] LABS: Hematocrit 37.7 VOL% (42.0-52.0); Hemoglobin 12.2 GM/DL (14.0-18.0)
[2017-10-18] MEDS: PANTOPRAZOLE 40 MG VIAL IV SCH (20:27)
[2017-10-19 01:02] LABS: Basophils # 0.1 10*3/uL (0.0-0.2); Basophils % 1.1 % (0.0-0.8); Eosinophils # 0.3 10*3/uL (0.0-0.87); Eosinophils % 4.2 % (0.00-10.9); Hematocrit 36.5 VOL% (42.0-52.0); Hemoglobin 12.1 GM/DL (14.0-18.0); Immature Granulocytes % 0.3 %; Immature Granulocytes Absolute 0.02 #; Lymphocytes # 2.4 10*3/uL (1.4-4.0); Mean Corpuscular HGB Conc 33.2 GM/DL (32-36); Mean Corpuscular Hemoglobin 28 PG (27-34); Mean Corpuscular Volume 85.1 FL (87-102); Mean Platelet Volume 10.6 FL (9.6-12.0); Monocytes # 0.7 10*3/uL (0.11-0.8); Monocytes % 9.8 % (1.7-12.7); Neutrophils # 3.9 10*3/uL (1.4-7.4); Neutrophils % 52.6 % (38.7-73.9); Platelet Count 220 T/CUMM (130-400); Red Blood Count 4.29 MC/CUMM (3.8-5.5); Red Cell Distribution Width 13.6 % (9.3-17.3); White Blood Count 7.4 T/CUMM (4-12)
[2017-10-19 01:27] LABS: Risk Ratio 2.39; Thyroid Stimulating Hormone 1.39 uIU/ml (0.358-3.74); VLDL CHOLESTEROL 12.4 MG/DL
[2017-10-19] MEDS: SODIUM CHLORIDE 0.9% 1,000 ML IV SCH ×2 (01:49→18:37)
[2017-10-19 04:15] LABS: Hematocrit 37.2 VOL% (42.0-52.0); Hemoglobin 11.8 GM/DL (14.0-18.0)
[2017-10-19] MEDS: PANTOPRAZOLE 40 MG VIAL IV SCH ×2 (10:39→21:17)
[2017-10-19] MEDS ORDERED: HALOPERIDOL 5 MG TABLET PO SCH ×2 (12:00→12:52)
[2017-10-19] MEDS: IBUPROFEN 600 MG TABLET PO SCH ×3 (13:27→21:18)
[2017-10-19] MEDS: HALOPERIDOL 5 MG TABLET PO SCH ×2 (13:27→21:18)
[2017-10-19] MEDS: LITHIUM 300 MG CAPSULE PO SCH ×2 (15:47→21:18)
[2017-10-19] MEDS: traZODone 50 MG TABLET PO PRN (21:17)
[2017-10-19] MEDS: BENZTROPINE 1 MG TABLET PO SCH (21:18)
[2017-10-20] MEDS: SODIUM CHLORIDE 0.9% 1,000 ML IV SCH ×4 (02:47→21:58)
[2017-10-20 05:48] LABS: Basophils # 0.1 10*3/uL (0.0-0.2); Eosinophils # 0.3 10*3/uL (0.0-0.87); Hematocrit 37.3 VOL% (42.0-52.0); Hemoglobin 12.1 GM/DL (14.0-18.0); Immature Granulocytes % 0.2 %; Immature Granulocytes Absolute 0.01 #; Lymphocytes # 2.2 10*3/uL (1.4-4.0); Lymphocytes % 35.4 % (21.2-54.2); Mean Corpuscular HGB Conc 32.4 GM/DL (32-36); Mean Corpuscular Hemoglobin 28 PG (27-34); Mean Corpuscular Volume 86.9 FL (87-102); Mean Platelet Volume 11.1 FL (9.6-12.0); Monocytes # 0.6 10*3/uL (0.11-0.8); Monocytes % 8.8 % (1.7-12.7); Neutrophils # 3.1 10*3/uL (1.4-7.4); Neutrophils % 49.6 % (38.7-73.9); Platelet Count 231 T/CUMM (130-400); Red Blood Count 4.29 MC/CUMM (3.8-5.5); Red Cell Distribution Width 13.6 % (9.3-17.3); White Blood Count 6.2 T/CUMM (4-12)
[2017-10-20] MEDS: BENZTROPINE 1 MG TABLET PO SCH ×2 (08:42→21:57)
[2017-10-20] MEDS: IBUPROFEN 600 MG TABLET PO SCH ×4 (08:42→21:58)
[2017-10-20] MEDS: LITHIUM 300 MG CAPSULE PO SCH ×3 (08:42→21:57)
[2017-10-20] MEDS: HALOPERIDOL 5 MG TABLET PO SCH ×2 (08:42→21:57)
[2017-10-20] MEDS: PANTOPRAZOLE 40 MG VIAL IV SCH ×2 (08:43→21:58)
[2017-10-20] MEDS: traZODone 50 MG TABLET PO PRN (21:57)
[2017-10-21 04:11] LABS: Basophils # 0.1 10*3/uL (0.0-0.2); Eosinophils # 0.4 10*3/uL (0.0-0.87); Eosinophils % 6.1 % (0.00-10.9); Hematocrit 36.2 VOL% (42.0-52.0); Hemoglobin 11.8 GM/DL (14.0-18.0); Immature Granulocytes % 0.3 %; Immature Granulocytes Absolute 0.02 #; Lymphocytes % 30.1 % (21.2-54.2); Mean Corpuscular HGB Conc 32.6 GM/DL (32-36); Mean Corpuscular Hemoglobin 28 PG (27-34); Mean Platelet Volume 10.6 FL (9.6-12.0); Monocytes # 0.7 10*3/uL (0.11-0.8); Monocytes % 9.7 % (1.7-12.7); Neutrophils # 3.5 10*3/uL (1.4-7.4); Neutrophils % 52.8 % (38.7-73.9); Platelet Count 233 T/CUMM (130-400); Red Blood Count 4.26 MC/CUMM (3.8-5.5); Red Cell Distribution Width 13.4 % (9.3-17.3); White Blood Count 6.7 T/CUMM (4-12)
[2017-10-21 04:27] LABS: Calcium 8.1 MG/DL (8.5-10.1); Osmolality,Calculated 283.7 MOS/KG (273-304); Potassium 3.7 MMOL/L (3.5-5.1)
[2017-10-21] MEDS: SODIUM CHLORIDE 0.9% 1,000 ML IV SCH ×3 (06:14→17:28)
[2017-10-21] MEDS: PANTOPRAZOLE 40 MG VIAL IV SCH (08:52)
[2017-10-21] MEDS ORDERED: PROPOFOL 200 MG/20 ML VIAL IV ONE (09:00)
[2017-10-21] MEDS ORDERED: LIDOCAINE 100 MG/5 ML SYRINGE ONE (09:00)
[2017-10-21] MEDS: HALOPERIDOL 5 MG TABLET PO SCH (14:20)
[2017-10-21] MEDS: LITHIUM 300 MG CAPSULE PO SCH ×2 (14:20→15:49)
[2017-10-21] MEDS: BENZTROPINE 1 MG TABLET PO SCH (14:20)
[2017-10-21] MEDS: IBUPROFEN 600 MG TABLET PO SCH ×2 (14:20→14:21)
[2017-10-21 16:34] VITALS: BP 126/79
== END 2017-10-21 17:05 | DRG 381 ==
LOC: EDBD → EDUNIT# → N.ED 12:20 → SUATTDRO 15:21 → N.EDINP 15:21 → N.4E 15:51
PROVIDERS: ADMIT Internal Medicine; ATTEND Internal Medicine Geriatric Medicine